=== PATIENT | female | born 1940 | race Caucasian/White ===

== ENCOUNTER → 2016-05-05 | Outpatient (REF) | payer MEDICARE ==
[~2016-05-05] MED LIST: CALC50TA PO; COLA100C PO; KETO10TAB PO; LISI-538 PO; METF500T PO; MYLI40DR PO; OMEP20TA PO; PRAV20TA2 PO; TURM500C PO; VITA400T2 PO; VITMTA PO
== END ==
LOC: M LAB REF 12:18
PROVIDERS: ATTEND Internal Medicine Medical Oncology
DX: C48.2 Malignant neoplasm of peritoneum, unspecified (principal)

== ENCOUNTER 2016-05-09 19:21 | Emergency (ER) | payer MEDICARE ==
[2016-05-09] MEDS ORDERED: METOCLOPRAMIDE INJ 10MG/2ML VIAL (J2765) As Ordered ONE (20:43)
[2016-05-09] MEDS ORDERED: SILVER NITRATE APPLICATOR As Ordered ONE (20:54)
[2016-05-09 21:02] LABS: BASO % 0.2 % (0.0-1.0); EOS % 0.9 % (0.0-3.0); LARGE UNSTAINED CELL % 0.8 % (0.0-4.0); LYMPH # 0.6 K/mm3 (1.5-4.5); LYMPH % 11.9 % (24.0-44.0); MEAN CORPUSCULAR HEMOGLOBIN 30.3 pg (27.0-33.0); MEAN CORPUSCULAR HGB CONC 33.8 g/dl (32.0-36.5); MEAN CORPUSCULAR VOLUME 89.7 fl (80.0-96.0); MONO # 0.1 K/mm3 (0.0-0.8); MONO % 1.6 % (0.0-5.0); NEUTROPHILS % 84.7 % (36.0-66.0); PLATELET COUNT, AUTOMATED 251 k/mm3 (150-450); WHITE BLOOD COUNT 4.7 K/mm3 (4.0-10.0)
[2016-05-09 21:11] LABS: INR 2.48
[2016-05-09 21:33] LABS: ALBUMIN 3.5 GM/DL (3.2-5.2); ALKALINE PHOSPHATASE 104 U/L (45-117); ALT/SGPT 14 U/L (12-78); AMYLASE 31 U/L (25-115); ANION GAP 8 MEQ/L (8-16); AST/SGOT 13 U/L (15-37); BILIRUBIN,DIRECT 0.2 MG/DL (0.0-0.2); BILIRUBIN,TOTAL 0.6 MG/DL (0.2-1.0); BLOOD UREA NITROGEN 11 MG/DL (7-18); CARBON DIOXIDE LEVEL 27 MEQ/L (21-32); CHLORIDE LEVEL 107 MEQ/L (98-107); CREATININE FOR GFR 0.55 MG/DL (0.55-1.02); GLOMERULAR FILTRATION RATE > 60.0 (>39); GLUCOSE, FASTING 134 MG/DL (83-110); POTASSIUM SERUM 3.8 MEQ/L (3.5-5.1); SODIUM LEVEL 142 MEQ/L (136-145)
--- NOTE | 2016-05-09 23:48 | REP ---
Clinical: Acute abdominal pain. Rule out obstruction. Technique: Upright view of the chest with supine and upright views of the abdomen and pelvis. Findings: Frontal upright view of the chest demonstrates Peallr-K-Luio with tip in the SVC and no acute cardiopulmonary process or free air below the diaphragm to suspect pneumoperitoneum. Supine and upright views of the abdomen and pelvis demonstrate nonspecific bowel gas pattern without obstruction or perforation. Postsurgical changes appreciated. No organomegaly. No abnormal calcifications. Skeletal structures normal for age. Impression: Nonspecific bowel gas pattern. Signed by Charles Lopez MD 05/09/2016 11:39 P
--- NOTE | 2016-05-10 00:17 | EDDOCDS ---
Nurse's Notes [facility] Name: Mayte Weathers Age: 76 yrs Sex: Female : 1940 Arrival Date: 05/09/2016 Time: 19:21 Bed 17 Private MD: Meaghan Boyer T Diagnosis: Epistaxis-right nares, controlled with cauterization;Nausea and vomiting Presentation: 05/09 19:25 Presenting complaint: Patient states: nauseated and vomiting with nose bleeds after pml vomiting all afternoon. had chemo last . denies fevers. Adult Sepsis Screening: The patient does not have new or worsening altered mentation. Patient's respiratory rate is less than 22. Systolic blood pressure is greater than 100. Patient has a qSOFA score of 0- Negative Sepsis Screen. Suicide/Homicide risk assessment- the patient denies having any suicidal and/or homicidal ideations and does not present with any other emotional, behavioral or mental health complaints. Status: Patient is not a neon sign servicer or dependent. Transition of care: patient was not received from another setting of care. 19:25 Acuity: QUIRINO Level 3 pml 19:25 Method Of Arrival: Walkin/Carried/Asstd pml Triage Assessment: 19:30 General: Appears in no apparent distress, comfortable, Behavior is appropriate for age, pml cooperative. Pain: Denies pain. GI: Reports nausea. Historical: - Allergies: Percocet (Vomit); - Home Meds: 1. Xarelto 15 mg oral tab daily 2. omeprazole 20 mg Oral cpDR once daily 3. lisinopril 10 mg oral tab once daily 4. pravastatin 20 mg oral tab once daily 5. Calcium Gluconate 600mg Oral twice a day 6. Vitamin D Oral 500 unit twice a day 7. rao med curcumin 375mg daily 8. 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 No barriers to communication noted, The patient speaks fluent British, Speaks appropriately for age. - Family history: Not pertinent. - : The pt / caregiver states he / she is not on anticoagulants. Home medication list is obtained from the patient. - Exposure Risk Screening:: None identified. Screenin/17 00:15 Screening information is obtained from the patient. Fall risk: No risks identified. ko2 Assistance ADL's: requires no assistance with activities of daily living. Abuse/DV Screen: The patient / caregiver reports he/she is: not in a situation that causes fear, pain or injury. Nutritional screening: No deficits noted. Advance Directives: Currently, there is no health care proxy. There is no active DNR order. There is no living will. There is no Power of Rotary Rock Drilling Machine Operator. home support is adequate. Assessment: 05/09 21:08 General: Appears in no apparent distress, Behavior is appropriate for age, cooperative. ko2 Pain: Denies pain. Neurological: Level of Consciousness is awake, alert. Respiratory: Airway is patent Respiratory effort is even, unlabored. GI: Reports nausea, vomiting. Derm: Skin is normal. 22:00 General: Appears in no apparent distress, Behavior is appropriate for age, cooperative. ko2 Neurological: Level of Consciousness is awake, alert. Respiratory: Airway is patent Respiratory effort is even, unlabored. Derm: Skin is normal. 23:00 General: Appears in no apparent distress, Behavior is appropriate for age, cooperative. ko2 Neurological: Level of Consciousness is awake, alert. Respiratory: Airway is patent Respiratory effort is even, unlabored. Derm: Skin is normal. 05/10 00:14 General: Appears in no apparent distress, Behavior is appropriate for age, cooperative. ko2 Neurological: Level of Consciousness is awake, alert. Respiratory: Airway is patent Respiratory effort is even, unlabored. Derm: Skin is normal. Vital Signs: 05/09 19:23 BP 126 / 87; Pulse 122; Resp 18; Temp 97.1; Pulse Ox 97% ; Weight 61.23 kg; Height 4 jlm ft. 10 in. (147.32 cm); Pain 0/10; 05/10 00:05 BP 117 / 77; Pulse 83; Resp 18; Temp 97.3(TE); Pulse Ox 95% on R/A; Pain 0/10; ignacio 05/09 19:23 Body Mass Index 28.21 (61.23 kg, 147.32 cm) [facility] Vitals: 05/09 19:23 Log In Time: May 09, 2016 at 19:23. jlm 19:25 RN notified that patient meets Red Flag criteria. [facility] ED Course: 19:23 Patient visited by Pricila Guzmán, Market Investigator. jlm 19:23 Meaghan Boyer is Private Physician. jlm 19:23 Patient moved to Waiting jlm 19:27 Patient visited by Pricila Guzmán, Market Investigator. jlm 19:27 Patient moved to Pre RCE jlm 19:28 Triage Initiated pml 19:31 Patient visited by Kavitha Yates,NAYAN. pml 19:31 Emely Dunham,RN is Primary Nurse. pml 19:31 Patient moved to 17 pml 19:37 Patient visited by Ade Contreras PCA. ignacio 19:37 Pt greeted and oriented to ED. Patient advised of names of staff involved in care, ignacio location of call nagel, wait times and NPO status. Accompanied by Family Member, Significant Other, Patient has correct armband on for positive identification. Placed in gown. Bed in low position. Call light in reach. Side rails up X2. accredited pharmacy technician on. Pulse ox on. NIBP on. 19:52 Maynor Miller DO is Attending Physician. mm11 19:52 Patient visited by Maynor Miller DO. mm11 20:01 Patient visited by Maynor Miller DO. mm11 20:10 Patient visited by Levon Soliz PCA. kb5 21:08 Patient visited by Emely Dunham RN. ko2 21:17 Inserted saline lock: 20 gauge in left antecubital area The patient tolerated the jf3 procedure well. 22:05 Patient visited by Emely Dunham RN. ko2 23:07 Patient visited by Ade Contreras PCA. ignacio 23:19 Patient moved to Radiology bereket 23:20 Patient moved to 17 bereket 23:21 [facility] Payment Agreement was scanned into [employer] and attached to record. gjb 05/10 00:03 Abdomen, Flat\E\Upright,PA Chest Returned. EDMS 00:06 Patient visited by Ade Contreras PCA. ignacio 00:15 The patient / caregiver is instructed regarding the plan of care and ED course. ko2 00:15 Discontinued lock intact, bleeding controlled, pressure dressing applied, No ko2 redness/swelling at site. No procedures done that require assistance. Administered Medications: 05/09 20:52 Drug: Metoclopramide 10 mg [metoclopramide 5 mg/mL injection solution] Route: IV; Rate: ko2 40 mg/hr; Infused Over: 15 mins; Site: right antecubital; 20:52 Drug: NS 0.9% 500 ml [sodium chloride 0.9 % intravenous solution] Route: IV; Rate: ko2 bolus; Site: left antecubital; 20:56 Drug: Silver Nitrate Applicators 1 applic [silver nitrate applicators 75 %-25 % topical ko2 stick (1 applic)] {Note: Dr miller given Silver nitrate stick.} Route: Topical; Site: face; Order Results: Lab Order: Amylase; SPEC'M 05/09/16 20:50 Test: AMYLASE; Value: 31; Range: 25-115; Units: U/L; Status: F Lab Order: Basic Metabolic Profile; SPEC'M 05/09/16 20:50 Test: GLUCOSE, FASTING; Value: 134; Range: 83-110; Abnormal: Above high normal; Units: MG/DL; Status: F Test: BLOOD UREA NITROGEN; Value: 11; Range: 7-18; Units: MG/DL; Status: F Test: CREATININE FOR GFR; Value: 0.55; Range: 0.55-1.02; Units: MG/DL; Status: F Test: GLOMERULAR FILTRATION RATE; Value: > 60.0; Range: >39; Status: F Test: SODIUM LEVEL; Value: 142; Range: 136-145; Units: MEQ/L; Status: F Test: POTASSIUM SERUM; Value: 3.8; Range: 3.5-5.1; Units: MEQ/L; Status: F Test: CHLORIDE LEVEL; Value: 107; Range: 98-107; Units: MEQ/L; Status: F Test: CARBON DIOXIDE LEVEL; Value: 27; Range: 21-32; Units: MEQ/L; Status: F Test: ANION GAP; Value: 8; Range: 8-16; Units: MEQ/L; Status: F Test: CALCIUM LEVEL; Value: 9.0; Range: 8.8-10.2; Units: MG/DL; Status: F Test Note: ; Units are mL/min/1.73 m2 Chronic Kidney Disease Staging per NKF: Stage I & II GFR >=60 Normal to Mildly Decreased Stage III GFR 30-59 Moderately Decreased Stage IV GFR 15-29 Severely Decreased Stage V GFR <15 Very Little GFR Left ESRD GFR <15 on CLINIC COORDINATOR Lab Order: CBC with Diff; SPEC'M 05/09/16 20:50 Test: WHITE BLOOD COUNT; Value: 4.7; Range: 4.0-10.0; Units: K/mm3; Status: F Test: RED BLOOD COUNT; Value: 3.90; Range: 4.00-5.40; Abnormal: Below low normal; Units: M/mm3; Status: F Test: HEMOGLOBIN; Value: 11.8; Range: 12.0-16.0; Abnormal: Below low normal; Units: g/dl; Status: F Test: HEMATOCRIT; Value: 35.0; Range: 36.0-47.0; Abnormal: Below low normal; Units: %; Status: F Test: MEAN CORPUSCULAR VOLUME; Value: 89.7; Range: 80.0-96.0; Units: fl; Status: F Test: MEAN CORPUSCULAR HEMOGLOBIN; Value: 30.3; Range: 27.0-33.0; Units: pg; Status: F Test: MEAN CORPUSCULAR HGB CONC; Value: 33.8; Range: 32.0-36.5; Units: g/dl; Status: F Test: RED CELL DISTRIBUTION WIDTH; Value: 15.0; Range: 11.5-14.5; Abnormal: Above high normal; Units: %; Status: F Test: PLATELET COUNT, AUTOMATED; Value: 251; Range: 150-450; Units: k/mm3; Status: F Test: NEUTROPHILS %; Value: 84.7; Range: 36.0-66.0; Abnormal: Above high normal; Units: %; Status: F Test: LYMPH %; Value: 11.9; Range: 24.0-44.0; Abnormal: Below low normal; Units: %; Status: F Test: MONO %; Value: 1.6; Range: 0.0-5.0; Units: %; Status: F Test: EOS %; Value: 0.9; Range: 0.0-3.0; Units: %; Status: F Test: BASO %; Value: 0.2; Range: 0.0-1.0; Units: %; Status: F Test: LARGE UNSTAINED CELL %; Value: 0.8; Range: 0.0-4.0; Units: %; Status: F Test: NEUTROPHILS #; Value: 4.0; Range: 1.8-7.7; Units: K/mm3; Status: F Test: LYMPH #; Value: 0.6; Range: 1.5-4.5; Abnormal: Below low normal; Units: K/mm3; Status: F Test: MONO #; Value: 0.1; Range: 0.0-0.8; Units: K/mm3; Status: F Test: EOS #; Value: 0.0; Range: 0.0-0.50; Units: K/mm3; Status: F Test: BASO #; Value: 0.0; Range: 0.0-0.2; Units: K/mm3; Status: F Test: LARGE UNSTAINED CELL #; Value: 0.0; Range: 0.0-0.4; Units: K/mm3; Status: F Lab Order: Cardiac Injury Profile; [facility] 05/09/16 20:50 Test: CPK CREATINE PHOSPHOKINASE; Value: 24; Range: 26-192; Abnormal: Below low normal; Units: U/L; Status: F Test: CK-MB VALUE MASS; Value: 1.0; Range: 0.0-3.6; Units: NG/ML; Status: F Test: MB/CK RELATIVE INDEX; Value: 4.16; Range: < OR =4; Abnormal: Above high normal; Status: F Test Note: ; DIAGNOSIS CRITERIA MMB ng/ml Relative Index (RI) NON-AMI < or = 5 N/A HERNANDEZ ZONE > 5 < or = 4 AMI > 5 > 4 Lab Order: Lipase; [facility] 05/09/16 20:50 Test: LIPASE; Value: 88; Range: 73-393; Units: U/L; Status: F Lab Order: Liver Profile; [facility] 05/09/16 20:50 Test: AST/SGOT; Value: 13; Range: 15-37; Abnormal: Below low normal; Units: U/L; Status: F Test: ALT/SGPT; Value: 14; Range: 12-78; Units: U/L; Status: F Test: ALKALINE PHOSPHATASE; Value: 104; Range: 45-117; Units: U/L; Status: F Test: BILIRUBIN,TOTAL; Value: 0.6; Range: 0.2-1.0; Units: MG/DL; Status: F Test: BILIRUBIN,DIRECT; Value: 0.2; Range: 0.0-0.2; Units: MG/DL; Status: F Test: TOTAL PROTEIN; Value: 7.0; Range: 6.4-8.2; Units: GM/DL; Status: F Test: ALBUMIN; Value: 3.5; Range: 3.2-5.2; Units: GM/DL; Status: F Test: ALBUMIN/GLOBULIN RATIO; Value: 1.00; Range: 1.00-1.93; Status: F Lab Order: Partial Thromboplastin Time; [facility] 05/09/16 20:50 Test: PARTIAL THROMBOPLASTIN TIME; Value: 35.8; Range: 26.6-37.1; Units: SECONDS; Status: F Lab Order: Prothrombin Time Profile\E\INR; [facility] 05/09/16 20:50 Test: PROTHROMBIN TIME; Value: 26.9; Range: 12.3-14.5; Abnormal: Above high normal; Units: SECONDS; Status: F Test: INR; Value: 2.48; Status: F Test Note: ; THERAPUTIC HUMAN INR VALUES INDICATIONS NORMAL RANGES PROPHYLAXIS/TREATMENT OF: VENOUS THROMBOSIS 2.0-3.0 PULMONARY EMBOLISM 2.0-3.0 PREVENTION OF SYSTEMIC EMBOLISM FROM: TISSUE HEART VALVES 2.0-3.0 ACUTE MYOCARDIAL INFARCTION 2.0-3.0 VALVULAR HEART DISEASE 2.0-3.0 ATRIAL FIBRILLATION 2.0-3.0 MECHANICAL VALVES(HIGH RISK) 2.5-3.5 RECURRENT MYOCARDIAL INFARCTION 2.5-3.5 Lab Order: Troponin; [facility] 05/09/16 20:50 Test: TROPONIN I; Value: < 0.02; Range: < 0.10; Units: NG/ML; Status: F Test Note: ; Troponin I Reference Interval for [employer] LOCI: 99th Percentile= 0.00-0.045 ng/ml Risk Stratification: <= 0.10 ng/ml Decreased Risk for Adverse Clinical Events. 0.10-1.50 ng/ml Increased Risk for Adverse Clinical Events. Evaluation of additional criterion and/or repeat testing in 2-6 hours is suggested to rule out myocardial damage. >= 1.50 ng/ml Indicative of Myocardial Injury. Radiology Order: Abdomen, Flat\E\Upright,PA Chest Test: Abdomen, Flat\E\Upright,PA Chest REASON FOR EXAMINATION: r/o obstruction; Clinical: Acute abdominal pain. Rule out obstruction.; ; Technique: Upright view of the chest with supine and upright views of the; abdomen and pelvis.; ; Findings: Frontal upright view of the chest demonstrates Gkonkm-Z-Hwzz with tip; in the SVC and no acute cardiopulmonary process or free air below the diaphragm; to suspect pneumoperitoneum. Supine and upright views of the abdomen and pelvis; demonstrate nonspecific bowel gas pattern without obstruction or perforation.; Postsurgical changes appreciated. No organomegaly. No abnormal calcifications.; Skeletal structures normal for age.; ; Impression:; Nonspecific bowel gas pattern.; ; ; Signed by; Charles Lopez MD 05/09/2016 11:39 P; Outcome: 05/10 00:07 Discharge ordered by Provider. mm11 00:15 Discharge Assessment: Patient awake, alert and oriented x 3. No cognitive and/or ko2 functional deficits noted. Patient verbalized understanding of disposition instructions. patient administered narcotics - no. The following High Risk Discharge criteria are identified: None. Discharged to home ambulatory. Condition: stable. Discharge instructions given to patient, Instructed on discharge instructions, follow up and referral plans. medication usage, Demonstrated understanding of instructions, medications, Pt was receptive of discharge instructions/ teaching. Prescriptions given X 1. No special radiology studies were completed. Property sent home with patient. 00:16 Patient left the ED. ko2 Signatures: Dispatcher [employer] EDMS Sebastian Charles Kristopher, YARD DEMURRAGE CLERK YARD DEMURRAGE CLERK [email or web address] Maynor Miller, DO mm11 Ade Contreras, YARD DEMURRAGE CLERK YARD DEMURRAGE CLERK Kavitha Onofre RN RN pml Mitchell, Jessie, Market Investigator Unit jlEmely Mcclelland RN RN ko2 Stevenson Mccullough RN RN jf3 Naye Peralta MTDD
--- NOTE | 2016-05-10 00:17 | EDDOCDS ---
Physician Documentation [facility] Name: Mayte Weathers Age: 76 yrs Sex: Female : 1940 Arrival Date: 05/09/2016 Time: 19:21 Bed 17 Private MD: Meaghan Boyer T Disposition: 05/10/16 00:07 Discharged to Home/Self Care. Impression: Epistaxis - right nares, controlled with cauterization, Nausea and vomiting. - Condition is Stable. - Discharge Instructions: Nosebleed, Nausea and Vomiting, Nosebleed, [id number]. - Prescriptions for Reglan 10 mg Oral Tablet - take 1 tablet by ORAL route every 6 hours take 30 minutes before meals and at bedtime; 20 tablet. - Medication Reconciliation, Local Pharmacy Hours form. - Follow up: Private Physician; When: 2 - 3 days; Reason: Continuance of care. - Problem is an acute exacerbation. - Symptoms have improved. Historical: - Allergies: Percocet (Vomit); - Home Meds: 1. Xarelto 15 mg oral tab daily 2. omeprazole 20 mg Oral cpDR once daily 3. lisinopril 10 mg oral tab once daily 4. pravastatin 20 mg oral tab once daily 5. Calcium Gluconate 600mg Oral twice a day 6. Vitamin D Oral 500 unit twice a day 7. rao med curcumin 375mg daily 8. 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 No barriers to communication noted, The patient speaks fluent Bulgarian, Speaks appropriately for age. - Family history: Not pertinent. - : The pt / caregiver states he / she is not on anticoagulants. Home medication list is obtained from the patient. - Exposure Risk Screening:: None identified. Vital Signs: 05/09 19:23 BP 126 / 87; Pulse 122; Resp 18; Temp 97.1; Pulse Ox 97% ; Weight 61.23 kg / 134.99 jlm lbs; Height 4 ft. 10 in. (147.32 cm); Pain 0/10; 05/10 00:05 BP 117 / 77; Pulse 83; Resp 18; Temp 97.3(TE); Pulse Ox 95% on R/A; Pain 0/10; ignacio 05/09 19:23 Body Mass Index 28.21 (61.23 kg, 147.32 cm) [facility] MDM: 05/09 20:02 -Blood Culture (Adults Only), peripheral from different site, or from device/port/PICC mm11 etc. if present ordered. 20:02 IV Saline Lock ordered. mm11 20:02 Undress patient appropriately for examination ordered. mm11 20:02 Metoclopramide 10 mg IV at 40 mg/hr once over 15 mins ordered. mm11 20:02 NS 0.9% 500 ml IV at bolus once ordered. mm11 20:03 Amylase Ordered. EDMS 20:03 Basic Metabolic Profile Ordered. EDMS 20:03 CBC with Diff Ordered. EDMS 20:03 Cardiac Injury Profile Ordered. EDMS 20:03 Lipase Ordered. EDMS 20:03 Liver Profile Ordered. EDMS 20:03 Partial Thromboplastin Time Ordered. EDMS 20:03 Prothrombin Time Profile\E\INR Ordered. EDMS 20:03 Troponin Ordered. EDMS 20:04 NOTHING BY MOUTH+DIET ordered. EDMS 20:06 -Blood Culture (Adults Only), peripheral from different site, or from device/port/PICC ml3 etc. if present complete. 20:08 BLOOD CULTURES Ordered. EDMS 20:30 Silver Nitrate Applicators 75 %-25 % 1 applic Topical once ordered. mm11 21:12 CBC with Diff Reviewed. mm11 21:12 Prothrombin Time Profile\E\INR Reviewed. mm11 21:12 Partial Thromboplastin Time Reviewed. mm11 22:10 Basic Metabolic Profile Reviewed. mm11 22:10 Cardiac Injury Profile Reviewed. mm11 22:10 Liver Profile Reviewed. mm11 22:10 Amylase Reviewed. mm11 22:10 Lipase Reviewed. mm11 22:10 Troponin Reviewed. mm11 22:32 Financial registration complete. gjb 22:57 Abdomen, Flat\E\Upright,PA Chest Ordered. EDMS 23:21 COUNT INCLUDES THE [facility] Payment Agreement was scanned into [employer] and attached to record. gjb Administered Medications: 20:52 Drug: Metoclopramide 10 mg [metoclopramide 5 mg/mL injection solution] Route: IV; Rate: ko2 40 mg/hr; Infused Over: 15 mins; Site: right antecubital; 20:52 Drug: NS 0.9% 500 ml [sodium chloride 0.9 % intravenous solution] Route: IV; Rate: ko2 bolus; Site: left antecubital; 20:56 Drug: Silver Nitrate Applicators 1 applic [silver nitrate applicators 75 %-25 % topical ko2 stick (1 applic)] {Note: Dr miller given Silver nitrate stick.} Route: Topical; Site: face; Signatures: Dispatcher [employer] EDMS Derrick Galarza, Adolescent Coordinator Unit ml3 Maynor Miller DO DO mm11 Kavitha Yates RN RN pml Emely Dunham RN RN ko2 Naye Peralta The chart was reviewed and I authenticate all verbal orders and agree with the evaluation and treatment provided.Attachments: 23:21 COUNT INCLUDES THE [facility] Payment Agreement altaf MTDSonal
--- NOTE | 2016-05-12 01:17 | EDDOCDS ---
Nurse's Notes [facility] Name: Mayte Weathers Age: 76 yrs Sex: Female : 1940 Arrival Date: 05/09/2016 Time: 19:21 Bed 17 Private MD: Meaghan Boyer T Diagnosis: Epistaxis-right nares, controlled with cauterization;Nausea and vomiting Presentation: 05/09 19:25 Presenting complaint: Patient states: nauseated and vomiting with nose bleeds after pml vomiting all afternoon. had chemo last . denies fevers. Adult Sepsis Screening: The patient does not have new or worsening altered mentation. Patient's respiratory rate is less than 22. Systolic blood pressure is greater than 100. Patient has a qSOFA score of 0- Negative Sepsis Screen. Suicide/Homicide risk assessment- the patient denies having any suicidal and/or homicidal ideations and does not present with any other emotional, behavioral or mental health complaints. Status: Patient is not a office service coordinator or dependent. Transition of care: patient was not received from another setting of care. 19:25 Acuity: QUIRINO Level 3 pml 19:25 Method Of Arrival: Walkin/Carried/Asstd pml Triage Assessment: 19:30 General: Appears in no apparent distress, comfortable, Behavior is appropriate for age, pml cooperative. Pain: Denies pain. GI: Reports nausea. Historical: - Allergies: Percocet (Vomit); - Home Meds: 1. Xarelto 15 mg oral tab daily 2. omeprazole 20 mg Oral cpDR once daily 3. lisinopril 10 mg oral tab once daily 4. pravastatin 20 mg oral tab once daily 5. Calcium Gluconate 600mg Oral twice a day 6. Vitamin D Oral 500 unit twice a day 7. rao med curcumin 375mg daily 8. 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 No barriers to communication noted, The patient speaks fluent [place], Speaks appropriately for age. - Family history: Not pertinent. - : The pt / caregiver states he / she is not on anticoagulants. Home medication list is obtained from the patient. - Exposure Risk Screening:: None identified. Screenin/17 00:15 Screening information is obtained from the patient. Fall risk: No risks identified. ko2 Assistance ADL's: requires no assistance with activities of daily living. Abuse/DV Screen: The patient / caregiver reports he/she is: not in a situation that causes fear, pain or injury. Nutritional screening: No deficits noted. Advance Directives: Currently, there is no health care proxy. There is no active DNR order. There is no living will. There is no Power of [place]. home support is adequate. Assessment: 05/09 21:08 General: Appears in no apparent distress, Behavior is appropriate for age, cooperative. ko2 Pain: Denies pain. Neurological: Level of Consciousness is awake, alert. Respiratory: Airway is patent Respiratory effort is even, unlabored. GI: Reports nausea, vomiting. Derm: Skin is normal. 22:00 General: Appears in no apparent distress, Behavior is appropriate for age, cooperative. ko2 Neurological: Level of Consciousness is awake, alert. Respiratory: Airway is patent Respiratory effort is even, unlabored. Derm: Skin is normal. 23:00 General: Appears in no apparent distress, Behavior is appropriate for age, cooperative. ko2 Neurological: Level of Consciousness is awake, alert. Respiratory: Airway is patent Respiratory effort is even, unlabored. Derm: Skin is normal. 05/10 00:14 General: Appears in no apparent distress, Behavior is appropriate for age, cooperative. ko2 Neurological: Level of Consciousness is awake, alert. Respiratory: Airway is patent Respiratory effort is even, unlabored. Derm: Skin is normal. Vital Signs: 05/09 19:23 BP 126 / 87; Pulse 122; Resp 18; Temp 97.1; Pulse Ox 97% ; Weight 61.23 kg; Height 4 jlm ft. 10 in. (147.32 cm); Pain 0/10; 05/10 00:05 BP 117 / 77; Pulse 83; Resp 18; Temp 97.3(TE); Pulse Ox 95% on R/A; Pain 0/10; ignacio 05/09 19:23 Body Mass Index 28.21 (61.23 kg, 147.32 cm) [facility] Vitals: 05/09 19:23 Log In Time: May 09, 2016 at 19:23. jlm 19:25 RN notified that patient meets Red Flag criteria. [facility] ED Course: 19:23 Patient visited by Pricila Guzmán, Audio Visual Facilities Engineer. jlm 19:23 Meaghan Boyer is Private Physician. jlm 19:23 Patient moved to Waiting jlm 19:27 Patient visited by Pricila Guzmán, Audio Visual Facilities Engineer. jlm 19:27 Patient moved to Pre RCE jlm 19:28 Triage Initiated pml 19:31 Patient visited by Kavitha Yates,NAYAN. pml 19:31 Emely Dunham,RN is Primary Nurse. pml 19:31 Patient moved to 17 pml 19:37 Patient visited by Ade Contreras PCA. ignacio 19:37 Pt greeted and oriented to ED. Patient advised of names of staff involved in care, ignacio location of call nagel, wait times and NPO status. Accompanied by Family Member, Significant Other, Patient has correct armband on for positive identification. Placed in gown. Bed in low position. Call light in reach. Side rails up X2. blade grader operator on. Pulse ox on. NIBP on. 19:52 Maynor Miller DO is Attending Physician. mm11 19:52 Patient visited by Maynor Miller DO. mm11 20:01 Patient visited by Maynor Miller DO. mm11 20:10 Patient visited by Levon Soliz PCA. kb5 21:08 Patient visited by Emely Dunham RN. ko2 21:17 Inserted saline lock: 20 gauge in left antecubital area The patient tolerated the jf3 procedure well. 22:05 Patient visited by Emely Dunham RN. ko2 23:07 Patient visited by Ade Contreras PCA. ignacio 23:19 Patient moved to Radiology bereket 23:20 Patient moved to 17 bereket 23:21 [facility] [place] Payment Agreement was scanned into [employer] and attached to record. gjb 05/10 00:03 Abdomen, Flat\E\Upright,PA Chest Returned. EDMS 00:06 Patient visited by Ade Contreras PCA. ignacio 00:15 The patient / caregiver is instructed regarding the plan of care and ED course. ko2 00:15 Discontinued lock intact, bleeding controlled, pressure dressing applied, No ko2 redness/swelling at site. No procedures done that require assistance. 11:09 T-Sheet-- Draft Copy was scanned into [employer] and attached to record. gb Administered Medications: 05/09 20:52 Drug: Metoclopramide 10 mg [metoclopramide 5 mg/mL injection solution] Route: IV; Rate: ko2 40 mg/hr; Infused Over: 15 mins; Site: right antecubital; 20:52 Drug: NS 0.9% 500 ml [sodium chloride 0.9 % intravenous solution] Route: IV; Rate: ko2 bolus; Site: left antecubital; 20:56 Drug: Silver Nitrate Applicators 1 applic [silver nitrate applicators 75 %-25 % topical ko2 stick (1 applic)] {Note: Dr miller given Silver nitrate stick.} Route: Topical; Site: face; Order Results: Lab Order: Amylase; SPEC'M 05/09/16 20:50 Test: AMYLASE; Value: 31; Range: 25-115; Units: U/L; Status: F Lab Order: Basic Metabolic Profile; SPEC'M 05/09/16 20:50 Test: GLUCOSE, FASTING; Value: 134; Range: 83-110; Abnormal: Above high normal; Units: MG/DL; Status: F Test: BLOOD UREA NITROGEN; Value: 11; Range: 7-18; Units: MG/DL; Status: F Test: CREATININE FOR GFR; Value: 0.55; Range: 0.55-1.02; Units: MG/DL; Status: F Test: GLOMERULAR FILTRATION RATE; Value: > 60.0; Range: >39; Status: F Test: SODIUM LEVEL; Value: 142; Range: 136-145; Units: MEQ/L; Status: F Test: POTASSIUM SERUM; Value: 3.8; Range: 3.5-5.1; Units: MEQ/L; Status: F Test: CHLORIDE LEVEL; Value: 107; Range: 98-107; Units: MEQ/L; Status: F Test: CARBON DIOXIDE LEVEL; Value: 27; Range: 21-32; Units: MEQ/L; Status: F Test: ANION GAP; Value: 8; Range: 8-16; Units: MEQ/L; Status: F Test: CALCIUM LEVEL; Value: 9.0; Range: 8.8-10.2; Units: MG/DL; Status: F Test Note: ; Units are mL/min/1.73 m2 Chronic Kidney Disease Staging per NKF: Stage I & II GFR >=60 Normal to Mildly Decreased Stage III GFR 30-59 Moderately Decreased Stage IV GFR 15-29 Severely Decreased Stage V GFR <15 Very Little GFR Left ESRD GFR <15 on WAX BALL MOLDER Lab Order: CBC with Diff; SPEC'M 05/09/16 20:50 Test: WHITE BLOOD COUNT; Value: 4.7; Range: 4.0-10.0; Units: K/mm3; Status: F Test: RED BLOOD COUNT; Value: 3.90; Range: 4.00-5.40; Abnormal: Below low normal; Units: M/mm3; Status: F Test: HEMOGLOBIN; Value: 11.8; Range: 12.0-16.0; Abnormal: Below low normal; Units: g/dl; Status: F Test: HEMATOCRIT; Value: 35.0; Range: 36.0-47.0; Abnormal: Below low normal; Units: %; Status: F Test: MEAN CORPUSCULAR VOLUME; Value: 89.7; Range: 80.0-96.0; Units: fl; Status: F Test: MEAN CORPUSCULAR HEMOGLOBIN; Value: 30.3; Range: 27.0-33.0; Units: pg; Status: F Test: MEAN CORPUSCULAR HGB CONC; Value: 33.8; Range: 32.0-36.5; Units: g/dl; Status: F Test: RED CELL DISTRIBUTION WIDTH; Value: 15.0; Range: 11.5-14.5; Abnormal: Above high normal; Units: %; Status: F Test: PLATELET COUNT, AUTOMATED; Value: 251; Range: 150-450; Units: k/mm3; Status: F Test: NEUTROPHILS %; Value: 84.7; Range: 36.0-66.0; Abnormal: Above high normal; Units: %; Status: F Test: LYMPH %; Value: 11.9; Range: 24.0-44.0; Abnormal: Below low normal; Units: %; Status: F Test: MONO %; Value: 1.6; Range: 0.0-5.0; Units: %; Status: F Test: EOS %; Value: 0.9; Range: 0.0-3.0; Units: %; Status: F Test: BASO %; Value: 0.2; Range: 0.0-1.0; Units: %; Status: F Test: LARGE UNSTAINED CELL %; Value: 0.8; Range: 0.0-4.0; Units: %; Status: F Test: NEUTROPHILS #; Value: 4.0; Range: 1.8-7.7; Units: K/mm3; Status: F Test: LYMPH #; Value: 0.6; Range: 1.5-4.5; Abnormal: Below low normal; Units: K/mm3; Status: F Test: MONO #; Value: 0.1; Range: 0.0-0.8; Units: K/mm3; Status: F Test: EOS #; Value: 0.0; Range: 0.0-0.50; Units: K/mm3; Status: F Test: BASO #; Value: 0.0; Range: 0.0-0.2; Units: K/mm3; Status: F Test: LARGE UNSTAINED CELL #; Value: 0.0; Range: 0.0-0.4; Units: K/mm3; Status: F Lab Order: Cardiac Injury Profile; SPEC' 05/09/16 20:50 Test: CPK CREATINE PHOSPHOKINASE; Value: 24; Range: 26-192; Abnormal: Below low normal; Units: U/L; Status: F Test: CK-MB VALUE MASS; Value: 1.0; Range: 0.0-3.6; Units: NG/ML; Status: F Test: MB/CK RELATIVE INDEX; Value: 4.16; Range: < OR =4; Abnormal: Above high normal; Status: F Test Note: ; DIAGNOSIS CRITERIA MMB ng/ml Relative Index (RI) NON-AMI < or = 5 N/A HERNANDEZ ZONE > 5 < or = 4 AMI > 5 > 4 Lab Order: Lipase; SPEC'M 05/09/16 20:50 Test: LIPASE; Value: 88; Range: 73-393; Units: U/L; Status: F Lab Order: Liver Profile; SPEC' 05/09/16 20:50 Test: AST/SGOT; Value: 13; Range: 15-37; Abnormal: Below low normal; Units: U/L; Status: F Test: ALT/SGPT; Value: 14; Range: 12-78; Units: U/L; Status: F Test: ALKALINE PHOSPHATASE; Value: 104; Range: 45-117; Units: U/L; Status: F Test: BILIRUBIN,TOTAL; Value: 0.6; Range: 0.2-1.0; Units: MG/DL; Status: F Test: BILIRUBIN,DIRECT; Value: 0.2; Range: 0.0-0.2; Units: MG/DL; Status: F Test: TOTAL PROTEIN; Value: 7.0; Range: 6.4-8.2; Units: GM/DL; Status: F Test: ALBUMIN; Value: 3.5; Range: 3.2-5.2; Units: GM/DL; Status: F Test: ALBUMIN/GLOBULIN RATIO; Value: 1.00; Range: 1.00-1.93; Status: F Lab Order: Partial Thromboplastin Time; [facility] 05/09/16 20:50 Test: PARTIAL THROMBOPLASTIN TIME; Value: 35.8; Range: 26.6-37.1; Units: SECONDS; Status: F Lab Order: Prothrombin Time Profile\E\INR; 05/09/16 20:50 Test: PROTHROMBIN TIME; Value: 26.9; Range: 12.3-14.5; Abnormal: Above high normal; Units: SECONDS; Status: F Test: INR; Value: 2.48; Status: F Test Note: ; THERAPUTIC HUMAN INR VALUES INDICATIONS NORMAL RANGES PROPHYLAXIS/TREATMENT OF: VENOUS THROMBOSIS 2.0-3.0 PULMONARY EMBOLISM 2.0-3.0 PREVENTION OF SYSTEMIC EMBOLISM FROM: TISSUE HEART VALVES 2.0-3.0 ACUTE MYOCARDIAL INFARCTION 2.0-3.0 VALVULAR HEART DISEASE 2.0-3.0 ATRIAL FIBRILLATION 2.0-3.0 MECHANICAL VALVES(HIGH RISK) 2.5-3.5 RECURRENT MYOCARDIAL INFARCTION 2.5-3.5 Lab Order: Troponin; 05/09/16 20:50 Test: TROPONIN I; Value: < 0.02; Range: < 0.10; Units: NG/ML; Status: F Test Note: ; Troponin I Reference Interval for [employer] LOCI: 99th Percentile= 0.00-0.045 ng/ml Risk Stratification: <= 0.10 ng/ml Decreased Risk for Adverse Clinical Events. 0.10-1.50 ng/ml Increased Risk for Adverse Clinical Events. Evaluation of additional criterion and/or repeat testing in 2-6 hours is suggested to rule out myocardial damage. >= 1.50 ng/ml Indicative of Myocardial Injury. Lab Order: BLOOD CULTURES; SPEC'M 05/09/16 20:50 Test: BLOOD CULTURE; Value: No growth after 24 hours . All specimens observed; Status: F Test: BLOOD CULTURE; Value: for 5 days. Results final at that time.; Status: F Test: BLOOD CULTURE; Value: No Growth after 48 hours. All Specimens observed; Status: F Test: BLOOD CULTURE; Value: for 7 days. Results final at that time.; Status: F Radiology Order: Abdomen, Flat\E\Upright,PA Chest Test: Abdomen, Flat\E\Upright,PA Chest REASON FOR EXAMINATION: r/o obstruction; Clinical: Acute abdominal pain. Rule out obstruction.; ; Technique: Upright view of the chest with supine and upright views of the; abdomen and pelvis.; ; Findings: Frontal upright view of the chest demonstrates [id number] with tip; in the SVC and no acute cardiopulmonary process or free air below the diaphragm; to suspect pneumoperitoneum. Supine and upright views of the abdomen and pelvis; demonstrate nonspecific bowel gas pattern without obstruction or perforation.; Postsurgical changes appreciated. No organomegaly. No abnormal calcifications.; Skeletal structures normal for age.; ; Impression:; Nonspecific bowel gas pattern.; ; ; Signed by; Charles Lopez MD 05/09/2016 11:39 P; Outcome: 05/10 00:07 Discharge ordered by Provider. mm11 00:15 Discharge Assessment: Patient awake, alert and oriented x 3. No cognitive and/or ko2 functional deficits noted. Patient verbalized understanding of disposition instructions. patient administered narcotics - no. The following High Risk Discharge criteria are identified: None. Discharged to home ambulatory. Condition: stable. Discharge instructions given to patient, Instructed on discharge instructions, follow up and referral plans. medication usage, Demonstrated understanding of instructions, medications, Pt was receptive of discharge instructions/ teaching. Prescriptions given X 1. No special radiology studies were completed. Property sent home with patient. 00:16 Patient left the ED. ko2 Signatures: Dispatcher [employer] EDMS Sebastian Charles bereket [place], Nalini, Reg Reg gb [place], Levon, RUBY ON RAILS DEVELOPER RUBY ON RAILS DEVELOPER kb5 Maynor Miller, DO DO mm11 Ben, Ade, RUBY ON RAILS DEVELOPER RUBY ON RAILS DEVELOPER ignacio Milan,Kavitha,RN RN pml Pricila Guzmán, Audio Visual Facilities Engineer Unit jlm Emely Dunham RN RN ko2 Stevenson Mccullough RN RN jf3 Naye Peralta Chart Complete MTDD
--- NOTE | 2016-05-12 01:17 | EDDOCDS ---
Physician Documentation [facility] Name: Mayte Weathers Age: 76 yrs Sex: Female : 1940 Arrival Date: 05/09/2016 Time: 19:21 Bed 17 Private MD: Meaghan Boyer T Disposition: 05/10/16 00:07 Discharged to Home/Self Care. Impression: Epistaxis - right nares, controlled with cauterization, Nausea and vomiting. - Condition is Stable. - Discharge Instructions: Nosebleed, Nausea and Vomiting, Nosebleed, [id number]. - Prescriptions for Reglan 10 mg Oral Tablet - take 1 tablet by ORAL route every 6 hours take 30 minutes before meals and at bedtime; 20 tablet. - Medication Reconciliation, Local Pharmacy Hours form. - Follow up: Private Physician; When: 2 - 3 days; Reason: Continuance of care. - Problem is an acute exacerbation. - Symptoms have improved. Historical: - Allergies: Percocet (Vomit); - Home Meds: 1. Xarelto 15 mg oral tab daily 2. omeprazole 20 mg Oral cpDR once daily 3. lisinopril 10 mg oral tab once daily 4. pravastatin 20 mg oral tab once daily 5. Calcium Gluconate 600mg Oral twice a day 6. Vitamin D Oral 500 unit twice a day 7. rao med curcumin 375mg daily 8. 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 No barriers to communication noted, The patient speaks fluent Telugu, Speaks appropriately for age. - Family history: Not pertinent. - : The pt / caregiver states he / she is not on anticoagulants. Home medication list is obtained from the patient. - Exposure Risk Screening:: None identified. Vital Signs: 05/09 19:23 BP 126 / 87; Pulse 122; Resp 18; Temp 97.1; Pulse Ox 97% ; Weight 61.23 kg / 134.99 jlm lbs; Height 4 ft. 10 in. (147.32 cm); Pain 0/10; 05/10 00:05 BP 117 / 77; Pulse 83; Resp 18; Temp 97.3(TE); Pulse Ox 95% on R/A; Pain 0/10; ignacio 05/09 19:23 Body Mass Index 28.21 (61.23 kg, 147.32 cm) [facility] MDM: 05/09 20:02 -Blood Culture (Adults Only), peripheral from different site, or from device/port/PICC mm11 etc. if present ordered. 20:02 IV Saline Lock ordered. mm11 20:02 Undress patient appropriately for examination ordered. mm11 20:02 Metoclopramide 10 mg IV at 40 mg/hr once over 15 mins ordered. mm11 20:02 NS 0.9% 500 ml IV at bolus once ordered. mm11 20:03 Amylase Ordered. EDMS 20:03 Basic Metabolic Profile Ordered. EDMS 20:03 CBC with Diff Ordered. EDMS 20:03 Cardiac Injury Profile Ordered. EDMS 20:03 Lipase Ordered. EDMS 20:03 Liver Profile Ordered. EDMS 20:03 Partial Thromboplastin Time Ordered. EDMS 20:03 Prothrombin Time Profile\E\INR Ordered. EDMS 20:03 Troponin Ordered. EDMS 20:04 NOTHING BY MOUTH+DIET ordered. EDMS 20:06 -Blood Culture (Adults Only), peripheral from different site, or from device/port/PICC ml3 etc. if present complete. 20:08 BLOOD CULTURES Ordered. EDMS 20:30 Silver Nitrate Applicators 75 %-25 % 1 applic Topical once ordered. mm11 21:12 CBC with Diff Reviewed. mm11 21:12 Prothrombin Time Profile\E\INR Reviewed. mm11 21:12 Partial Thromboplastin Time Reviewed. mm11 22:10 Basic Metabolic Profile Reviewed. mm11 22:10 Cardiac Injury Profile Reviewed. mm11 22:10 Liver Profile Reviewed. mm11 22:10 Amylase Reviewed. mm11 22:10 Lipase Reviewed. mm11 22:10 Troponin Reviewed. mm11 22:32 Financial registration complete. gjb 22:57 Abdomen, Flat\E\Upright,PA Chest Ordered. EDMS 23:21 [facility] Payment Agreement was scanned into [employer] and attached to record. gjb 05/10 11:09 T-Sheet-- Draft Copy was scanned into [employer] and attached to record. gb Administered Medications: 05/09 20:52 Drug: Metoclopramide 10 mg [metoclopramide 5 mg/mL injection solution] Route: IV; Rate: ko2 40 mg/hr; Infused Over: 15 mins; Site: right antecubital; 20:52 Drug: NS 0.9% 500 ml [sodium chloride 0.9 % intravenous solution] Route: IV; Rate: ko2 bolus; Site: left antecubital; 20:56 Drug: Silver Nitrate Applicators 1 applic [silver nitrate applicators 75 %-25 % topical ko2 stick (1 applic)] {Note: Dr miller given Silver nitrate stick.} Route: Topical; Site: face; Signatures: Dispatcher [employer] EDMS Nalini Maurer, Reg Reg gb Derrick Galarza, Coordinator [employer] Unit ml3 Maynor Miller, DO mm11 Kavitha YatesRN Emely Mka RN RN ko2 Beck, Gabriela gjb The chart was reviewed and I authenticate all verbal orders and agree with the evaluation and treatment provided.Attachments: 23:21 [facility] Payment Agreement gjb 05/10 11:09 T-Sheet-- Draft Copy gb Chart Complete MTDD
--- NOTE | 2016-05-12 01:17 | EDDOCDS ---
Physician Documentation [facility] Name: Mayte Weathers Age: 76 yrs Sex: Female : 1940 Arrival Date: 05/09/2016 Time: 19:21 Bed 17 Private MD: Meaghan Boyer T Disposition: 05/10/16 00:07 Discharged to Home/Self Care. Impression: Epistaxis - right nares, controlled with cauterization, Nausea and vomiting. - Condition is Stable. - Discharge Instructions: Nosebleed, Nausea and Vomiting, Nosebleed, [id number]. - Prescriptions for Reglan 10 mg Oral Tablet - take 1 tablet by ORAL route every 6 hours take 30 minutes before meals and at bedtime; 20 tablet. - Medication Reconciliation, Local Pharmacy Hours form. - Follow up: Private Physician; When: 2 - 3 days; Reason: Continuance of care. - Problem is an acute exacerbation. - Symptoms have improved. Historical: - Allergies: Percocet (Vomit); - Home Meds: 1. Xarelto 15 mg oral tab daily 2. omeprazole 20 mg Oral cpDR once daily 3. lisinopril 10 mg oral tab once daily 4. pravastatin 20 mg oral tab once daily 5. Calcium Gluconate 600mg Oral twice a day 6. Vitamin D Oral 500 unit twice a day 7. rao med curcumin 375mg daily 8. 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 No barriers to communication noted, The patient speaks fluent Frisian, Speaks appropriately for age. - Family history: Not pertinent. - : The pt / caregiver states he / she is not on anticoagulants. Home medication list is obtained from the patient. - Exposure Risk Screening:: None identified. Vital Signs: 05/09 19:23 BP 126 / 87; Pulse 122; Resp 18; Temp 97.1; Pulse Ox 97% ; Weight 61.23 kg / 134.99 jlm lbs; Height 4 ft. 10 in. (147.32 cm); Pain 0/10; 05/10 00:05 BP 117 / 77; Pulse 83; Resp 18; Temp 97.3(TE); Pulse Ox 95% on R/A; Pain 0/10; ignacio 05/09 19:23 Body Mass Index 28.21 (61.23 kg, 147.32 cm) [facility] MDM: 05/09 20:02 -Blood Culture (Adults Only), peripheral from different site, or from device/port/PICC mm11 etc. if present ordered. 20:02 IV Saline Lock ordered. mm11 20:02 Undress patient appropriately for examination ordered. mm11 20:02 Metoclopramide 10 mg IV at 40 mg/hr once over 15 mins ordered. mm11 20:02 NS 0.9% 500 ml IV at bolus once ordered. mm11 20:03 Amylase Ordered. EDMS 20:03 Basic Metabolic Profile Ordered. EDMS 20:03 CBC with Diff Ordered. EDMS 20:03 Cardiac Injury Profile Ordered. EDMS 20:03 Lipase Ordered. EDMS 20:03 Liver Profile Ordered. EDMS 20:03 Partial Thromboplastin Time Ordered. EDMS 20:03 Prothrombin Time Profile\E\INR Ordered. EDMS 20:03 Troponin Ordered. EDMS 20:04 NOTHING BY MOUTH+DIET ordered. EDMS 20:06 -Blood Culture (Adults Only), peripheral from different site, or from device/port/PICC ml3 etc. if present complete. 20:08 BLOOD CULTURES Ordered. EDMS 20:30 Silver Nitrate Applicators 75 %-25 % 1 applic Topical once ordered. mm11 21:12 CBC with Diff Reviewed. mm11 21:12 Prothrombin Time Profile\E\INR Reviewed. mm11 21:12 Partial Thromboplastin Time Reviewed. mm11 22:10 Basic Metabolic Profile Reviewed. mm11 22:10 Cardiac Injury Profile Reviewed. mm11 22:10 Liver Profile Reviewed. mm11 22:10 Amylase Reviewed. mm11 22:10 Lipase Reviewed. mm11 22:10 Troponin Reviewed. mm11 22:32 Financial registration complete. gjb 22:57 Abdomen, Flat\E\Upright,PA Chest Ordered. EDMS 23:21 [facility] Payment Agreement was scanned into [employer] and attached to record. gjb 05/10 11:09 T-Sheet-- Draft Copy was scanned into [employer] and attached to record. gb Administered Medications: 05/09 20:52 Drug: Metoclopramide 10 mg [metoclopramide 5 mg/mL injection solution] Route: IV; Rate: ko2 40 mg/hr; Infused Over: 15 mins; Site: right antecubital; 20:52 Drug: NS 0.9% 500 ml [sodium chloride 0.9 % intravenous solution] Route: IV; Rate: ko2 bolus; Site: left antecubital; 20:56 Drug: Silver Nitrate Applicators 1 applic [silver nitrate applicators 75 %-25 % topical ko2 stick (1 applic)] {Note: Dr miller given Silver nitrate stick.} Route: Topical; Site: face; Signatures: Dispatcher [employer] EDMS Nalini Maurer, Reg Reg gb Derrick Galarza, [employer] ml3 Maynor Miller, DO mm11 Kavitha YatesRN Emely Mak RN RN ko2 Beck, Gabriela gjb The chart was reviewed and I authenticate all verbal orders and agree with the evaluation and treatment provided.Attachments: 23:21 [facility] Payment Agreement gjb 05/10 11:09 T-Sheet-- Draft Copy gb Chart Complete MTDD
== END 2016-05-10 00:16 | disposition home or self-care (01) ==
LOC: M ED 19:21
DX: R04.0 Epistaxis (principal); R11.2 Nausea with vomiting, unspecified; C56.9 Malignant neoplasm of unspecified ovary; C18.9 Malignant neoplasm of colon, unspecified; C16.9 Malignant neoplasm of stomach, unspecified; E11.9 Type 2 diabetes mellitus without complications; K21.9 Gastro-esophageal reflux disease without esophagitis; E78.00 Pure hypercholesterolemia, unspecified; I10 Essential (primary) hypertension; Z90.79 Acquired absence of other genital organ(s); Z90.49 Acquired absence of other specified parts of digestive tract; Z79.01 Long term (current) use of anticoagulants; Z79.899 Other long term (current) drug therapy; Z88.5 Allergy status to narcotic agent
CPT/HCPCS: 74022; 80048; 80076; 82150; 82550; 82553; 83690; 84484; 85025; 85610; 85730; 87040; 96374; 99284; J2765

== ENCOUNTER → 2016-05-18 | Outpatient (REF) | payer MEDICARE | LOC: M LAB REF 12:24 | PROVIDERS: ATTEND Internal Medicine Medical Oncology | DX: C56.9 Malignant neoplasm of unspecified ovary (principal) ==

== ENCOUNTER → 2016-06-02 | Outpatient (REF) | payer MEDICARE | LOC: M LAB REF 12:52 | PROVIDERS: ATTEND Internal Medicine Medical Oncology | DX: C56.9 Malignant neoplasm of unspecified ovary (principal) ==

== ENCOUNTER 2016-06-13 18:39 | Inpatient (IN) | payer MEDICARE ==
[~2016-06-13] VITALS: Ht 148.6 cm; Wt 61.8 kg
[~2016-06-13 18:39] MED LIST changes: -CALC1TAB30 PO; -LISI10TA4 PO; -LORA-376 PO; -PROC10TA PO; -ZANT1TAB PO; -ZOFR20TA PO
[2016-06-13] MEDS ORDERED: GASTROGRAFIN SOLUTION 30ML (Q9963) As Ordered ONE (19:51)
[2016-06-13] MEDS ORDERED: ONDANSETRON 4MG/2ML VIAL (J2405) As Ordered ONE ×2 (20:44→21:58)
[2016-06-13 20:55] LABS: BASO % 0.3 % (0.0-1.0); EOS % 0.7 % (0.0-3.0); LARGE UNSTAINED CELL % 0.6 % (0.0-4.0); LYMPH # 0.8 K/mm3 (1.5-4.5); LYMPH % 18.5 % (24.0-44.0); MEAN CORPUSCULAR HEMOGLOBIN 30.4 pg (27.0-33.0); MEAN CORPUSCULAR HGB CONC 33.5 g/dl (32.0-36.5); MEAN CORPUSCULAR VOLUME 90.7 fl (80.0-96.0); MONO # 0.2 K/mm3 (0.0-0.8); MONO % 4.9 % (0.0-5.0); NEUTROPHILS # 3.3 K/mm3 (1.8-7.7); NEUTROPHILS % 75.1 % (36.0-66.0); PLATELET COUNT, AUTOMATED 261 k/mm3 (150-450); RED CELL DISTRIBUTION WIDTH 17.6 % (11.5-14.5); WHITE BLOOD COUNT 4.4 K/mm3 (4.0-10.0)
[2016-06-13 21:16] LABS: ALBUMIN 3.5 GM/DL (3.2-5.2); ALBUMIN/GLOBULIN RATIO 1.17 (1.00-1.93); ALKALINE PHOSPHATASE 90 U/L (45-117); ALT/SGPT 11 U/L (12-78); ANION GAP 9 MEQ/L (8-16); AST/SGOT 11 U/L (15-37); BILIRUBIN,DIRECT 0.2 MG/DL (0.0-0.2); BILIRUBIN,TOTAL 0.6 MG/DL (0.2-1.0); BLOOD UREA NITROGEN 14 MG/DL (7-18); CALCIUM LEVEL 9.5 MG/DL (8.8-10.2); CARBON DIOXIDE LEVEL 28 MEQ/L (21-32); CHLORIDE LEVEL 101 MEQ/L (98-107); CREATININE FOR GFR 0.62 MG/DL (0.55-1.02); GLOMERULAR FILTRATION RATE > 60.0 (>39); GLUCOSE, FASTING 125 MG/DL (83-110); POTASSIUM SERUM 3.9 MEQ/L (3.5-5.1); SODIUM LEVEL 138 MEQ/L (136-145); TOTAL PROTEIN 6.5 GM/DL (6.4-8.2)
[2016-06-13] MEDS ORDERED: ISOVUE-370 76% 100ML VIAL (Q9967) As Ordered ONE (22:08)
--- NOTE | 2016-06-13 23:00 | REPUSA ---
CT of the abdomen and pelvis with contrast Clinical statement: vomiting, rule out obstruction. Technique: Multiple axial CT images were obtained from the base of the lungs through the floor of the pelvis utilizing 5 mm axial slices after administration of nonionic intravenous contrast. Coronal an d sagittal reconstructions were also obtained. No comparison is available. Findings: Chest: The visualized lung bases are clear. Abdomen: The liver, spleen, pancreas, kidneys, gallbladder, and adrenal glands are grossly unremarkab le. There is a 5 mm simple cyst in the left lobe of the liver. The aorta is within normal limits. The re is no evidence of abdominal lymphadenopathy or ascites. There is a large duodenal diverticulum. Pelvis: There is an ostomy in the left lower quadrant. The distal colon appears grossly intact, with extensive diverticulosis. However, there is severe distention of the small bowel. There is a rapid na rrowing of the small bowel adjacent to the umbilicus, where there is soft tissue thickening suspected to represent adhesions. Proximal to the site, there is a large amount of fluid and stool within the small bowel. The urinary bladder is within normal limits. The other pelvic structures appear grossly intact. There is no evidence of pelvic lymphadenopathy or ascites. Bones: There are no suspicious osseous abnormalities seen. Impression: 1. High-grade small bowel obstruction as described, likely secondary to adhesions. ER physician was notified of these findings at 10:50 PM on 06/13/2016.
[2016-06-14] MEDS ORDERED: ONDANSETRON 4MG/2ML VIAL (J2405) IV PRN (00:15)
[2016-06-14] MEDS ORDERED: KETOROLAC 30 MG/ML VIAL (J1885) IV PRN (00:15)
[2016-06-14] MEDS ORDERED: MORPHINE 2 MG/ML 1ML SYRINGE IV PRN (00:15)
[2016-06-14] MEDS ORDERED: ZOFR20TA PO (00:25)
[2016-06-14] MEDS ORDERED: LORA-376 PO (00:25)
[2016-06-14] MEDS ORDERED: PROC10TA PO (00:25)
[2016-06-14] MEDS ORDERED: LISI10TA4 PO (00:25)
[2016-06-14] MEDS ORDERED: CALC1TAB30 PO (00:25)
[2016-06-14] MEDS ORDERED: ZANT1TAB PO (00:25)
[2016-06-14 01:38] VITALS: BP 125/68
--- NOTE | 2016-06-14 01:49 | EDDOCDS ---
Physician Documentation [facility] Name: Mayte Weathers Age: 76 yrs Sex: Female : 1940 Arrival Date: 06/13/2016 Time: 18:39 Bed I8 Private MD: Meaghan Boyer T Disposition: 06/14/16 00:05 Hospitalization ordered by Evangelista Wharton for Inpatient Admission. Preliminary diagnosis is Other intestinal obstruction. - Bed requested for 4 [place]. - Status is Inpatient Admission. lf1 - Condition is Stable. - Problem is new. - Symptoms are unchanged. Historical: - Allergies: Percocet (Vomit); - Home Meds: 1. omeprazole 20 mg Oral cpDR once daily (Last dose: 06/13/2016 07:00) 2. lisinopril 10 mg Oral tab once daily (Last dose: 06/13/2016 07:00) 3. pravastatin 20 mg oral tab 1 tab once daily (Last dose: 06/13/2016 07:00) 4. lorazepam 0.5 mg Oral tab 1 tab 3 times per day (Last dose: 06/13/2016 07:00) 5. Zofran (as hydrochloride) 4 mg Oral tab 2 tabs every 8 hours (Last dose: 06/13/2016 07:00) 6. Zantac 150 mg Oral cap 1 cap 2 times per day (Last dose: 06/13/2016 07:00) 7. Compazine 10 mg Oral tab 1 tab 3 times per day (Last dose: 06/13/2016 07:00) 8. 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 No barriers to communication noted, Speaks appropriately for age. - Family history: Not pertinent. - : The pt / caregiver states he / she is not on anticoagulants. Home medication list is obtained from the patient. - Exposure Risk Screening:: None identified. Vital Signs: 06/13 18:42 BP 154 / 94 RA Sitting (auto/reg); Pulse 104; Resp 18; Temp 96.3(O); Pulse Ox 98% on jrd R/A; Weight 61.23 kg / 134.99 lbs (R); Height 4 ft. 10 in. (147.32 cm) (R); Pain 7/10; 22:37 BP 130 / 63; Pulse 100; Resp 18; Temp 97.9(O); Pulse Ox 98% on R/A; Pain 0/10; mf4 06/14 00:42 BP 100 / 67; Pulse 101; Resp 16; Temp 97.6(O); Pulse Ox 97% on R/A; Pain 0/10; lf1 01:30 BP 116 / 74; Pulse 103; Resp 17; Temp 97.4(O); Pulse Ox 96% on R/A; Pain 0/10; lf1 06/13 18:42 Body Mass Index 28.21 (61.23 kg, 147.32 cm) jrd MDM: 06/13 18:59 IV Saline Lock ordered. br1 19:00 CBC with Diff Ordered. EDMS 19:00 BMP Ordered. EDMS 19:00 Liver Profile Ordered. EDMS 19:00 Lipase Ordered. EDMS 19:23 NS 0.9% 1000 ml IV at 150 mL/hr continuous ordered. br1 19:24 CT ABD & PELVIS: IV and Oral Contrast Ordered. EDMS 19:26 Ondansetron 4 mg IVP once ordered. br1 20:26 Diatrizoate Meglumine & Sodium Liquid 10 ml PO once; mix in 290cc of water \T\ 2000 mf4 ordered. 20:26 Diatrizoate Meglumine & Sodium Liquid 10 ml PO once; mix in 290cc of water \T\ 2030 mf4 ordered. 21:43 CBC with Diff Reviewed. br1 21:43 BMP Reviewed. br1 21:43 Liver Profile Reviewed. br1 21:43 Lipase Reviewed. br1 21:44 Ondansetron 4 mg IVP once ordered. br1 22:44 Financial registration complete. zo 22:51 BED REQUEST+ADM ordered. EDMS 23:52 [facility] Payment Agreement was scanned into [employer] and attached to record. zo 06/14 00:18 Admission / Observation Status ordered. EDMS 00:19 NPO DIET ordered. EDMS 00:20 BASIC METABOLIC PROFILE Ordered. EDMS 00:20 Abdomen,Flat Plate KUB Ordered. EDMS Administered Medications: 06/13 20:26 Drug: Diatrizoate Meglumine & Sodium 10 ml [diatrizoate meglumine and diat.sodium 66 mf4 %-10 % oral solution (10 mL)] Route: PO; 20:45 Drug: Diatrizoate Meglumine & Sodium 10 ml [diatrizoate meglumine and diat.sodium 66 lf1 %-10 % oral solution (10 mL)] Route: PO; 20:53 Drug: NS 0.9% 1000 ml [sodium chloride 0.9 % intravenous solution] Route: IV; Rate: 150 lf1 mL/hr; Site: left antecubital; 20:53 Drug: Ondansetron 4 mg [ondansetron HCl 2 mg/mL intravenous solution (2 mL)] Route: lf1 IVP; Site: left antecubital; 22:03 Drug: Ondansetron 4 mg [ondansetron HCl 2 mg/mL intravenous solution (2 mL)] Route: lf1 IVP; Site: left antecubital; 22:37 Follow up: Response: Nausea is decreased mf4 22:37 Follow up: Response: Nausea is decreased mf4 Signatures: Dispatcher [employer] EDMS Rc Vazquez LisaRN RN lf1 Yadiel Torres MD MD br1 Maynor Healy RN RN ml6 Radha Watson RN RN sls1 Lorenzo Wolf,[employer] mf4 The chart was reviewed and I authenticate all verbal orders and agree with the evaluation and treatment provided.Attachments: 23:52 [facility] [place] Payment Agreement [facility]
--- NOTE | 2016-06-14 01:49 | EDDOCDS ---
Nurse's Notes [facility], [place] Name: Mayte Weathers Age: 76 yrs Sex: Female : 1940 Arrival Date: 06/13/2016 Time: 18:39 Bed I8 / 16 Private MD: Meaghan Boyer T Diagnosis: Other intestinal obstruction Presentation: 06/13 18:49 Presenting complaint: Patient states: states has had "upset" stomach and had XR done of ml6 abd, states Dr. Hester called to come in due to question of an obstruction. Adult Sepsis Screening: The patient does not have new or worsening altered mentation. Patient's respiratory rate is less than 22. Systolic blood pressure is greater than 100. Patient has a qSOFA score of 0- Negative Sepsis Screen. Suicide/Homicide risk assessment- the patient denies having any suicidal and/or homicidal ideations and does not present with any other emotional, behavioral or mental health complaints. Status: Patient is not a manager office services or dependent. Transition of care: patient was not received from another setting of care. 18:49 Acuity: QUIRINO Level 3 ml6 18:49 Method Of Arrival: Walkin/Carried/Asstd ml6 Triage Assessment: 18:55 General: Appears in no apparent distress, Behavior is appropriate for age, cooperative. ml6 Pain: Denies pain. GI: Abdomen is flat, non- distended Colostomy site Bowel sounds hypoactive in right lower quadrant and left lower quadrant. Injury Description: No known injury. Historical: - Allergies: Percocet (Vomit); - Home Meds: 1. omeprazole 20 mg Oral cpDR once daily (Last dose: 06/13/2016 07:00) 2. lisinopril 10 mg Oral tab once daily (Last dose: 06/13/2016 07:00) 3. pravastatin 20 mg oral tab 1 tab once daily (Last dose: 06/13/2016 07:00) 4. lorazepam 0.5 mg Oral tab 1 tab 3 times per day (Last dose: 06/13/2016 07:00) 5. Zofran (as hydrochloride) 4 mg Oral tab 2 tabs every 8 hours (Last dose: 06/13/2016 07:00) 6. Zantac 150 mg Oral cap 1 cap 2 times per day (Last dose: 06/13/2016 07:00) 7. Compazine 10 mg Oral tab 1 tab 3 times per day (Last dose: 06/13/2016 07:00) 8. 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 No barriers to communication noted, Speaks appropriately for age. - Family history: Not pertinent. - : The pt / caregiver states he / she is not on anticoagulants. Home medication list is obtained from the patient. - Exposure Risk Screening:: None identified. Screenin:53 Screening information is obtained from the patient. Fall risk: No risks identified. lf1 Assistance ADL's: requires no assistance with activities of daily living. Abuse/DV Screen: The patient / caregiver reports he/she is: not in a situation that causes fear, pain or injury. Nutritional screening: decreased appetite. home support is adequate. Assessment: 20:53 Adult Sepsis Screening: The patient does not have new or worsening altered mentation. lf1 Patient's respiratory rate is less than 22. Systolic blood pressure is greater than 100. Patient has a qSOFA score of 0- Negative Sepsis Screen. General: Appears ill, Behavior is cooperative. Pain: Denies pain. Neurological: Level of Consciousness is awake, alert, obeys commands, Oriented to person, place, time. EENT: No deficits noted. Cardiovascular: Chest pain is denied. Respiratory: Respiratory effort is even, unlabored, Respiratory pattern is regular. GI: Abdomen is non- distended Bowel sounds present in right upper quadrant, left upper quadrant and right lower quadrant Abd is soft and non tender Reports cramping, vomiting, intolerance of food. GI: Colostomy site is clean and dry. Ostomy appliance is intact. Derm: Skin is normal. 22:04 General: Appears ill, Behavior is cooperative, Pt reports that she is unable to lf1 tolerate the contrast and will not drink the second cup. Pt. medicated with 2nd dose of zofran. Provider notified. 22:13 General: Appears ill, Behavior is cooperative. Pain: Denies pain. Neurological: Level lf1 of Consciousness is awake, alert, obeys commands. Respiratory: Respiratory effort is even, unlabored. GI: Reports nausea. Derm: Skin is normal. 23:30 Adult Sepsis Screening: The patient does not have new or worsening altered mentation. lf1 Patient's respiratory rate is less than 22. Systolic blood pressure is greater than 100. Patient has a qSOFA score of 0- Negative Sepsis Screen. General: Appears ill, Behavior is cooperative. Pain: Denies pain. Neurological: Level of Consciousness is awake, alert. Respiratory: Respiratory effort is even, unlabored. GI: Reports nausea. 06/14 00:42 Adult Sepsis Screening: The patient does not have new or worsening altered mentation. lf1 Patient's respiratory rate is less than 22. Systolic blood pressure is less than or equal to 100 (1 point). Patient has a qSOFA score of 1- Negative Sepsis Screen. General: Appears ill, Behavior is cooperative. Pain: Denies pain. Neurological: Level of Consciousness is awake, alert, obeys commands, Oriented to person, place, time. EENT: No deficits noted. Cardiovascular: Chest pain is denied. Respiratory: Respiratory effort is even, unlabored. GI: Ostomy appliance is intact. No output since yesterday Reports cramping, intolerance of food. Derm: Skin is pale. 01:15 General: Admission nurse at bedside. lf1 01:30 Adult Sepsis Screening: The patient does not have new or worsening altered mentation. lf1 Patient's respiratory rate is less than 22. Systolic blood pressure is greater than 100. Patient has a qSOFA score of 0- Negative Sepsis Screen. General: Appears ill, Behavior is cooperative. Pain: Denies pain. Neurological: Level of Consciousness is awake, alert. EENT: No deficits noted. Cardiovascular: Chest pain is denied. Respiratory: Respiratory effort is even, unlabored. GI: Colostomy site is clean and dry. Pt reports no output in colostomy since yesterday, no gas or stool Reports nausea, vomiting. Derm: Skin is pale. Vital Signs: 06/13 18:42 BP 154 / 94 RA Sitting (auto/reg); Pulse 104; Resp 18; Temp 96.3(O); Pulse Ox 98% on jrd R/A; Weight 61.23 kg (R); Height 4 ft. 10 in. (147.32 cm) (R); Pain 7/10; 22:37 BP 130 / 63; Pulse 100; Resp 18; Temp 97.9(O); Pulse Ox 98% on R/A; Pain 0/10; mf4 06/14 00:42 BP 100 / 67; Pulse 101; Resp 16; Temp 97.6(O); Pulse Ox 97% on R/A; Pain 0/10; lf1 01:30 BP 116 / 74; Pulse 103; Resp 17; Temp 97.4(O); Pulse Ox 96% on R/A; Pain 0/10; lf1 06/13 18:42 Body Mass Index 28.21 (61.23 kg, 147.32 cm) [facility] Vitals: 06/13 18:42 Log In Time: June 13, 2016 at 18:38. [facility] ED Course: 18:41 Patient visited by Will Davies PCA. jrd 18:41 Patient moved to Waiting jrd 18:42 Meaghan Boyer is Private Physician. jrd 18:43 Patient visited by Will Davies PCA. jrd 18:43 Patient moved to Pre RCE jrd 18:50 Triage Initiated ml6 18:56 Patient moved to I8 / 16 ml6 18:58 Yadiel Torres MD is Attending Physician. br1 19:26 Patient visited by Yadiel Torres MD. br1 20:37 Lipase Sent. mb9 20:37 Liver Profile Sent. mb9 20:37 BMP Sent. mb9 20:37 CBC with Diff Sent. mb9 20:38 Inserted saline lock: 20 gauge in left antecubital area and blood collected. mb9 20:53 The patient / caregiver is instructed regarding the plan of care and ED course. lf1 Accompanied by Family Member, Patient has correct armband on for positive identification. Placed in gown. Bed in low position. Call light in reach. 20:57 Patient visited by Evie Eugene,RN. lf1 22:14 Patient visited by Evie Eugene,NAYAN. lf1 22:37 Lorenzo Wolf LPN is Primary Nurse. mf4 23:25 Patient visited by Yadiel Torres MD. br1 23:52 [facility] [place] was scanned into [employer] and attached to record. zo 23:55 CT ABD & PELVIS: IV and Oral Contrast Returned. EDMS 02/21 00:05 [place], Evangelista is Hospitalizing Provider. br1 00:41 Patient visited by Evie Eugene RN. lf1 01:11 Patient visited by Evie Eugene RN. lf1 01:30 Patient visited by Evie Eugene,NAYAN. lf1 01:30 No procedures done that require assistance. lf1 Administered Medications: 06/13 20:26 Drug: Diatrizoate Meglumine & Sodium 10 ml [diatrizoate meglumine and diat.sodium 66 mf4 %-10 % oral solution (10 mL)] Route: PO; 20:45 Drug: Diatrizoate Meglumine & Sodium 10 ml [diatrizoate meglumine and diat.sodium 66 lf1 %-10 % oral solution (10 mL)] Route: PO; 20:53 Drug: NS 0.9% 1000 ml [sodium chloride 0.9 % intravenous solution] Route: IV; Rate: 150 lf1 mL/hr; Site: left antecubital; 20:53 Drug: Ondansetron 4 mg [ondansetron HCl 2 mg/mL intravenous solution (2 mL)] Route: lf1 IVP; Site: left antecubital; 22:03 Drug: Ondansetron 4 mg [ondansetron HCl 2 mg/mL intravenous solution (2 mL)] Route: lf1 IVP; Site: left antecubital; 22:37 Follow up: Response: Nausea is decreased mf4 22:37 Follow up: Response: Nausea is decreased mf4 Order Results: Lab Order: CBC with Diff; SPEC'M 06/13/16 20:34 Test: WHITE BLOOD COUNT; Value: 4.4; Range: 4.0-10.0; Units: K/mm3; Status: F Test: RED BLOOD COUNT; Value: 3.93; Range: 4.00-5.40; Abnormal: Below low normal; Units: M/mm3; Status: F Test: HEMOGLOBIN; Value: 12.0; Range: 12.0-16.0; Units: g/dl; Status: F Test: HEMATOCRIT; Value: 35.7; Range: 36.0-47.0; Abnormal: Below low normal; Units: %; Status: F Test: MEAN CORPUSCULAR VOLUME; Value: 90.7; Range: 80.0-96.0; Units: fl; Status: F Test: MEAN CORPUSCULAR HEMOGLOBIN; Value: 30.4; Range: 27.0-33.0; Units: pg; Status: F Test: MEAN CORPUSCULAR HGB CONC; Value: 33.5; Range: 32.0-36.5; Units: g/dl; Status: F Test: RED CELL DISTRIBUTION WIDTH; Value: 17.6; Range: 11.5-14.5; Abnormal: Above high normal; Units: %; Status: F Test: PLATELET COUNT, AUTOMATED; Value: 261; Range: 150-450; Units: k/mm3; Status: F Test: NEUTROPHILS %; Value: 75.1; Range: 36.0-66.0; Abnormal: Above high normal; Units: %; Status: F Test: LYMPH %; Value: 18.5; Range: 24.0-44.0; Abnormal: Below low normal; Units: %; Status: F Test: MONO %; Value: 4.9; Range: 0.0-5.0; Units: %; Status: F Test: EOS %; Value: 0.7; Range: 0.0-3.0; Units: %; Status: F Test: BASO %; Value: 0.3; Range: 0.0-1.0; Units: %; Status: F Test: LARGE UNSTAINED CELL %; Value: 0.6; Range: 0.0-4.0; Units: %; Status: F Test: NEUTROPHILS #; Value: 3.3; Range: 1.8-7.7; Units: K/mm3; Status: F Test: LYMPH #; Value: 0.8; Range: 1.5-4.5; Abnormal: Below low normal; Units: K/mm3; Status: F Test: MONO #; Value: 0.2; Range: 0.0-0.8; Units: K/mm3; Status: F Test: EOS #; Value: 0.0; Range: 0.0-0.50; Units: K/mm3; Status: F Test: BASO #; Value: 0.0; Range: 0.0-0.2; Units: K/mm3; Status: F Test: LARGE UNSTAINED CELL #; Value: 0.0; Range: 0.0-0.4; Units: K/mm3; Status: F Lab Order: BMP; SPEC'M 06/13/16 20:34 Test: GLUCOSE, FASTING; Value: 125; Range: 83-110; Abnormal: Above high normal; Units: MG/DL; Status: F Test: BLOOD UREA NITROGEN; Value: 14; Range: 7-18; Units: MG/DL; Status: F Test: CREATININE FOR GFR; Value: 0.62; Range: 0.55-1.02; Units: MG/DL; Status: F Test: GLOMERULAR FILTRATION RATE; Value: > 60.0; Range: >39; Status: F Test: SODIUM LEVEL; Value: 138; Range: 136-145; Units: MEQ/L; Status: F Test: POTASSIUM SERUM; Value: 3.9; Range: 3.5-5.1; Units: MEQ/L; Status: F Test: CHLORIDE LEVEL; Value: 101; Range: 98-107; Units: MEQ/L; Status: F Test: CARBON DIOXIDE LEVEL; Value: 28; Range: 21-32; Units: MEQ/L; Status: F Test: ANION GAP; Value: 9; Range: 8-16; Units: MEQ/L; Status: F Test: CALCIUM LEVEL; Value: 9.5; Range: 8.8-10.2; Units: MG/DL; Status: F Test Note: ; Units are mL/min/1.73 m2 Chronic Kidney Disease Staging per NKF: Stage I & II GFR >=60 Normal to Mildly Decreased Stage III GFR 30-59 Moderately Decreased Stage IV GFR 15-29 Severely Decreased Stage V GFR <15 Very Little GFR Left ESRD GFR <15 on SH[employer] Lab Order: Liver Profile; SPEC'M 06/13/16 20:34 Test: AST/SGOT; Value: 11; Range: 15-37; Abnormal: Below low normal; Units: U/L; Status: F Test: ALT/SGPT; Value: 11; Range: 12-78; Abnormal: Below low normal; Units: U/L; Status: F Test: ALKALINE PHOSPHATASE; Value: 90; Range: 45-117; Units: U/L; Status: F Test: BILIRUBIN,TOTAL; Value: 0.6; Range: 0.2-1.0; Units: MG/DL; Status: F Test: BILIRUBIN,DIRECT; Value: 0.2; Range: 0.0-0.2; Units: MG/DL; Status: F Test: TOTAL PROTEIN; Value: 6.5; Range: 6.4-8.2; Units: GM/DL; Status: F Test: ALBUMIN; Value: 3.5; Range: 3.2-5.2; Units: GM/DL; Status: F Test: ALBUMIN/GLOBULIN RATIO; Value: 1.17; Range: 1.00-1.93; Status: F Lab Order: Lipase; SPEC'M 06/13/16 20:34 Test: LIPASE; Value: 95; Range: 73-393; Units: U/L; Status: F Radiology Order: CT ABD & PELVIS: IV and Oral Contrast Test: CT ABD & PELVIS: IV and Oral Contrast REASON FOR EXAMINATION: vomiting r/o sbo; ; CT of the abdomen and pelvis with contrast; Clinical statement: vomiting, rule out obstruction.; Technique: Multiple axial CT images were obtained from the base of the lungs through the floor of the; pelvis utilizing 5 mm axial slices after administration of nonionic intravenous contrast. Coronal an; d sagittal reconstructions were also obtained.; No comparison is available.; Findings:; Chest: The visualized lung bases are clear.; Abdomen: The liver, spleen, pancreas, kidneys, gallbladder, and adrenal glands are grossly unremarkab; le. There is a 5 mm simple cyst in the left lobe of the liver. The aorta is within normal limits. The; re is no evidence of abdominal lymphadenopathy or ascites. There is a large duodenal diverticulum.; Pelvis: There is an ostomy in the left lower quadrant. The distal colon appears grossly intact, with; extensive diverticulosis. However, there is severe distention of the small bowel. There is a rapid na; rrowing of the small bowel adjacent to the umbilicus, where there is soft tissue thickening suspected; to represent adhesions. Proximal to the site, there is a large amount of fluid and stool within the; small bowel. The urinary bladder is within normal limits. The other pelvic structures appear grossly; intact. There is no evidence of pelvic lymphadenopathy or ascites.; Bones: There are no suspicious osseous abnormalities seen.; Impression:; 1. High-grade small bowel obstruction as described, likely secondary to adhesions.; ER physician was notified of these findings at 10:50 PM on 06/13/2016.; ; ; Outcome: 06/14 00:05 Decision to Hospitalize by Provider. br1 01:48 Discharge Assessment: Patient awake, alert and oriented x 3. No cognitive and/or lf1 functional deficits noted. Patient verbalized understanding of disposition instructions. Patient awake and alert. Oriented to person, place and time. patient administered narcotics - no. The following High Risk Discharge criteria are identified: None. Admitted to Med/Surg accompanied by tech, via stretcher, with chart. Condition: unchanged. CT Study completed. Property :Personal belongings accompany Pt. 01:49 Patient left the ED. lf1 Signatures: Dispatcher [employer] EDMS Rc Vazquez Lisa,RN RN lf1 Yadiel Torres MD MD br1 Maynor Healy, RN RN ml6 Lorenzo Wolf,WATCH CRYSTAL MOLDER WATCH CRYSTAL MOLDER mf4 Will Davies PCA FRONT EDGER Mynor Sands,RN RN mb9 MTDD
[2016-06-14] MEDS: LR 1,000 ML IV SCH ×3 (01:50→16:31)
[2016-06-14 06:00] VITALS: BP 111/58
[2016-06-14 06:24] LABS: ANION GAP 11 MEQ/L (8-16); BLOOD UREA NITROGEN 12 MG/DL (7-18); CARBON DIOXIDE LEVEL 28 MEQ/L (21-32); CHLORIDE LEVEL 101 MEQ/L (98-107); CREATININE FOR GFR 0.56 MG/DL (0.55-1.02); GLOMERULAR FILTRATION RATE > 60.0 (>39); GLUCOSE, FASTING 118 MG/DL (83-110); POTASSIUM SERUM 3.4 MEQ/L (3.5-5.1); SODIUM LEVEL 140 MEQ/L (136-145)
[2016-06-14] MEDS: PANTOPRAZOLE 40MG INJ (PROTONIX) (C9113) IV SCH (08:36)
[2016-06-14 10:00] VITALS: BP 139/90
--- NOTE | 2016-06-14 10:26 | REP ---
Clinical: Small bowel obstruction. Technique: Two supine views of the abdomen and pelvis. Findings: By supine evaluation the bowel gas pattern is nonspecific. Ostomy identified over the left lower abdomen/pelvis. Nasogastric tube identified in the left upper quadrant. Surgical clips overlie the abdomen and pelvis. Contrast noted in the renal collecting system related to recent CT exam. Impression: Supine radiographs demonstrate nonspecific bowel gas pattern. Signed by Charles Lopez MD 06/14/2016 10:17 A
--- NOTE | 2016-06-14 12:29 | HPE ---
DATE OF ADMISSION: 06/14/2016 ADMITTING DIAGNOSIS: Small bowel obstruction. HISTORY OF PRESENT ILLNESS: The patient is a pleasant, 76-year-old woman who has been undergoing treatment for metastatic ovarian cancer over the last 14 months or so. In March of 2015, she had presented with a colonic obstruction. At surgery, she was found to have metastatic disease of possible ovarian origin. Multiple biopsies were obtained and a diverting colostomy was performed. Biopsies were confirmatory for ovarian cancer. Once the patient had recovered from the surgery, she underwent treatment with chemotherapy and in August or September 2015, she underwent an open hysterectomy with bilateral salpingo-oophorectomy for her ovarian cancer. She apparently did well and resumed chemotherapy after recovering from her surgery. She has continued chemotherapy with now weekly doses of Taxol intravenously. She most recently had a dose on , 06/09/2016. With the last several doses, she has developed some nausea and vomiting within a day or two following the chemotherapy dose. After this dose, she developed nausea. She had some vomiting on and off. She developed some intermittent crampy abdominal pains. For the last 24 hours or so, she has noticed that her colostomy has had no output, even gas. She has remained nauseous but has not vomited since coming to the emergency department at about 1839 hours on 06/13/2016. She was evaluated with a abdominal x-ray followed by a CT scan of the abdomen and pelvis, which showed some dilated loops of small bowel in the mid abdomen consistent with an intestinal obstruction. The patient is now being admitted for management of her intestinal blockage. ALLERGIES: The patient reports that PERCOCET has caused emesis in the past. Her home medications currently include: - omeprazole 20 mg by mouth daily - lisinopril 10 mg by mouth once daily - pravastatin 20 mg by mouth daily - lorazepam 0.5 mg one tablet by mouth three times daily as needed - Zofran 8 mg every 8 hours as needed - Zantac 150 mg by mouth twice daily - Compazine 10 mg one tablet by mouth three times a day - weekly injections of Taxol MEDICAL HISTORY: The patient has a history of diabetes, but since losing weight during the treatment of her tumor this has resolved and she is on no medications. She has a history of gastroesophageal reflux disease. There is a history of high cholesterol and hypertension. She has a history of ovarian carcinoma, currently undergoing chemotherapy. PAST SURGICAL HISTORY: She has had bilateral knee replacement. She has had colonoscopies previously. She has had bilateral cataract surgery. She had her colostomy created in March of 2015 and had her hysterectomy in August or September of 2015. SOCIAL HISTORY: The patient is . She is a never smoker. Family history is noncontributory. REVIEW OF SYSTEMS: The patient denies any chest pain or palpitations. She denies any cardiac history. She denies any cough, wheezing or sputum production. She has been nauseous and threw up several times today, but not since coming to the emergency department. She did have some oral contrast administered for her CT scan. She has had no output from her colostomy today. The patient reports that she has been voiding adequately. She denies any history of deep venous thrombosis. She is ambulatory under her own power. PHYSICAL EXAMINATION: Patient is lying quietly on a stretcher in the emergency department. She appears awake and alert. She has sparse hair on her head. She appears somewhat tired. Her most recent vital signs show blood pressure of 130/63 with a pulse of 100, respirations of 18, temperature of 97.9. Weight is recorded as 61 kg with a height of 58 inches. The sclerae are anicteric. Mucous membranes are tacky to moist. Her neck is supple without palpable mass. Heart exam reveals a regular rate and rhythm. The lungs are clear to auscultation bilaterally. The abdomen shows an ostomy appliance in the left lower quadrant. There is a minimal spot of stool at the opening at the ostomy. The bag is otherwise empty. The abdomen is fairly quiet to auscultation. She has an old midline scar. There is no sign of hernia. There is no tympany to percussion and no significant tenderness to percussion. The abdomen is full to palpation in the mid lower abdomen and right lower quadrant. Palpation reveals some fullness in the lower abdomen, but again does not disclose significant tenderness to palpation. The lower extremities are without significant edema. She has palpable radial and pedal pulses. Her laboratory studies include a CBC that shows a white count of 4.4, with a hemoglobin of 12, hematocrit of 36 and a platelet count of 261,000. Differential count shows 75% neutrophils and 19% lymphocytes. Chemistry profile shows normal electrolytes, BUN and creatinine, with a glucose of 125. Liver function tests are normal. Total protein is 6.5 with an albumin of 3.5 and the lipase is 95. The patient's CT scan showed several dilated loops of small bowel filled with air and fluid. The ostomy is noted. The radiologist felt the findings were consistent with a high-grade small bowel obstruction. The stomach is full of contrast. IMPRESSION: 1. Small bowel obstruction secondary to adhesions and possible residual ovarian carcinoma. 2. History of metastatic ovarian carcinoma undergoing chemotherapy. 3. Hypercholesterolemia. 4. Hypertension. 5. Gastroesophageal reflux. 6. History of diabetes mellitus. PLAN: At this point, the patient does appear to have a small bowel obstruction. Her ostomy has had no output for the last 24 hours or so, and she has been nauseous. As she has a stomach largely full of contrast, I think placement of the nasogastric (NG) tube would be appropriate. She will be continued on intravenous (IV) fluid with Ringer's lactate at 125 cc/hr. I will start her on daily IV Protonix. Zofran will be administered as necessary for nausea. She will be kept nothing by mouth. It may be that she can resolve this without the need for surgical intervention. It is likewise possible that this will not resolve and that surgical intervention will be absolutely required to resolve this. It is unclear what the status of her tumor is currently. She has been having serial CA-125 determinations over the last 6 months or so. These show that her CA-125 was normal on 12/30/2015, but miguelito rapidly over the next 2-3 months to the 340-600 range. It has since come down to 98 on 06/02/2016 following her current chemotherapy. We will recheck a chemistry profile in the morning. The patient was counseled regarding the plan for care. I do think that the NG tube is appropriate given the degree of dilation of the small bowel and the amount of fluid retained in her stomach. A repeat KUB will be obtained in the morning to see if there has been any progress with transit of the oral contrast and to reassess her bowel gas distribution.
[2016-06-14 14:00] VITALS: BP 126/77
[2016-06-14] MEDS: POTASSIUM CHLORIDE INJ 20 MEQ in D5W/LR 1,000 ML IV SCH (18:37)
[2016-06-14 22:00] VITALS: BP 138/88
[2016-06-15 02:00] VITALS: BP 110/70
[2016-06-15] MEDS: POTASSIUM CHLORIDE INJ 20 MEQ in D5W/LR 1,000 ML IV SCH ×2 (02:34→13:11)
[2016-06-15 06:00] VITALS: BP 125/73
[2016-06-15 06:22] LABS: BASO % 0.3 % (0.0-1.0); LARGE UNSTAINED CELL % 1.1 % (0.0-4.0); LYMPH # 0.7 K/mm3 (1.5-4.5); LYMPH % 16.8 % (24.0-44.0); MEAN CORPUSCULAR HEMOGLOBIN 30.2 pg (27.0-33.0); MEAN CORPUSCULAR VOLUME 91.5 fl (80.0-96.0); MONO # 0.3 K/mm3 (0.0-0.8); MONO % 7.2 % (0.0-5.0); NEUTROPHILS # 2.8 K/mm3 (1.8-7.7); NEUTROPHILS % 73.6 % (36.0-66.0); PLATELET COUNT, AUTOMATED 183 k/mm3 (150-450); RED CELL DISTRIBUTION WIDTH 17.8 % (11.5-14.5); WHITE BLOOD COUNT 3.7 K/mm3 (4.0-10.0)
[2016-06-15 06:42] LABS: ALBUMIN 2.5 GM/DL (3.2-5.2); ALBUMIN/GLOBULIN RATIO 0.96 (1.00-1.93); ALKALINE PHOSPHATASE 69 U/L (45-117); ALT/SGPT 9 U/L (12-78); ANION GAP 7 MEQ/L (8-16); AST/SGOT 12 U/L (15-37); BILIRUBIN,TOTAL 0.3 MG/DL (0.2-1.0); BLOOD UREA NITROGEN 11 MG/DL (7-18); CALCIUM LEVEL 8.2 MG/DL (8.8-10.2); CARBON DIOXIDE LEVEL 28 MEQ/L (21-32); CHLORIDE LEVEL 108 MEQ/L (98-107); CREATININE FOR GFR 0.66 MG/DL (0.55-1.02); GLOMERULAR FILTRATION RATE > 60.0 (>39); GLUCOSE, FASTING 132 MG/DL (83-110); POTASSIUM SERUM 3.8 MEQ/L (3.5-5.1); SODIUM LEVEL 143 MEQ/L (136-145); TOTAL PROTEIN 5.1 GM/DL (6.4-8.2)
[2016-06-15] MEDS: ENOXAPARIN 40 MG/0.4 ML SYRINGE (J1650) SC SCH (09:06)
[2016-06-15] MEDS: PANTOPRAZOLE 40MG INJ (PROTONIX) (C9113) IV SCH (09:06)
[2016-06-15 10:00] VITALS: BP 114/64
[2016-06-15 14:00] VITALS: BP 130/70
[2016-06-15 18:00] VITALS: BP 129/73
[2016-06-15 22:00] VITALS: BP 121/71
[2016-06-16 02:00] VITALS: BP 139/84
[2016-06-16] MEDS: POTASSIUM CHLORIDE INJ 20 MEQ in D5W/LR 1,000 ML IV SCH ×2 (02:00→14:48)
--- NOTE | 2016-06-16 02:50 | EDDOCDS ---
Nurse's Notes [facility] Name: Mayte Weathers Age: 76 yrs Sex: Female : 1940 Arrival Date: 06/13/2016 Time: 18:39 Bed I8 / 16 Private MD: Meaghan Boyer T Diagnosis: Other intestinal obstruction Presentation: 06/13 18:49 Presenting complaint: Patient states: states has had "upset" stomach and had XR done of ml6 abd, states Dr. Hester called to come in due to question of an obstruction. Adult Sepsis Screening: The patient does not have new or worsening altered mentation. Patient's respiratory rate is less than 22. Systolic blood pressure is greater than 100. Patient has a qSOFA score of 0- Negative Sepsis Screen. Suicide/Homicide risk assessment- the patient denies having any suicidal and/or homicidal ideations and does not present with any other emotional, behavioral or mental health complaints. Status: Patient is not a health services coordinator or dependent. Transition of care: patient was not received from another setting of care. 18:49 Acuity: QUIRINO Level 3 ml6 18:49 Method Of Arrival: Walkin/Carried/Asstd ml6 Triage Assessment: 18:55 General: Appears in no apparent distress, Behavior is appropriate for age, cooperative. ml6 Pain: Denies pain. GI: Abdomen is flat, non- distended Colostomy site Bowel sounds hypoactive in right lower quadrant and left lower quadrant. Injury Description: No known injury. Historical: - Allergies: Percocet (Vomit); - Home Meds: 1. omeprazole 20 mg Oral cpDR once daily (Last dose: 06/13/2016 07:00) 2. lisinopril 10 mg Oral tab once daily (Last dose: 06/13/2016 07:00) 3. pravastatin 20 mg oral tab 1 tab once daily (Last dose: 06/13/2016 07:00) 4. lorazepam 0.5 mg Oral tab 1 tab 3 times per day (Last dose: 06/13/2016 07:00) 5. Zofran (as hydrochloride) 4 mg Oral tab 2 tabs every 8 hours (Last dose: 06/13/2016 07:00) 6. Zantac 150 mg Oral cap 1 cap 2 times per day (Last dose: 06/13/2016 07:00) 7. Compazine 10 mg Oral tab 1 tab 3 times per day (Last dose: 06/13/2016 07:00) 8. 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 No barriers to communication noted, Speaks appropriately for age. - Family history: Not pertinent. - : The pt / caregiver states he / she is not on anticoagulants. Home medication list is obtained from the patient. - Exposure Risk Screening:: None identified. Screenin:53 Screening information is obtained from the patient. Fall risk: No risks identified. lf1 Assistance ADL's: requires no assistance with activities of daily living. Abuse/DV Screen: The patient / caregiver reports he/she is: not in a situation that causes fear, pain or injury. Nutritional screening: decreased appetite. home support is adequate. Assessment: 20:53 Adult Sepsis Screening: The patient does not have new or worsening altered mentation. lf1 Patient's respiratory rate is less than 22. Systolic blood pressure is greater than 100. Patient has a qSOFA score of 0- Negative Sepsis Screen. General: Appears ill, Behavior is cooperative. Pain: Denies pain. Neurological: Level of Consciousness is awake, alert, obeys commands, Oriented to person, place, time. EENT: No deficits noted. Cardiovascular: Chest pain is denied. Respiratory: Respiratory effort is even, unlabored, Respiratory pattern is regular. GI: Abdomen is non- distended Bowel sounds present in right upper quadrant, left upper quadrant and right lower quadrant Abd is soft and non tender Reports cramping, vomiting, intolerance of food. GI: Colostomy site is clean and dry. Ostomy appliance is intact. Derm: Skin is normal. 22:04 General: Appears ill, Behavior is cooperative, Pt reports that she is unable to lf1 tolerate the contrast and will not drink the second cup. Pt. medicated with 2nd dose of zofran. Provider notified. 22:13 General: Appears ill, Behavior is cooperative. Pain: Denies pain. Neurological: Level lf1 of Consciousness is awake, alert, obeys commands. Respiratory: Respiratory effort is even, unlabored. GI: Reports nausea. Derm: Skin is normal. 23:30 Adult Sepsis Screening: The patient does not have new or worsening altered mentation. lf1 Patient's respiratory rate is less than 22. Systolic blood pressure is greater than 100. Patient has a qSOFA score of 0- Negative Sepsis Screen. General: Appears ill, Behavior is cooperative. Pain: Denies pain. Neurological: Level of Consciousness is awake, alert. Respiratory: Respiratory effort is even, unlabored. GI: Reports nausea. 06/14 00:42 Adult Sepsis Screening: The patient does not have new or worsening altered mentation. lf1 Patient's respiratory rate is less than 22. Systolic blood pressure is less than or equal to 100 (1 point). Patient has a qSOFA score of 1- Negative Sepsis Screen. General: Appears ill, Behavior is cooperative. Pain: Denies pain. Neurological: Level of Consciousness is awake, alert, obeys commands, Oriented to person, place, time. EENT: No deficits noted. Cardiovascular: Chest pain is denied. Respiratory: Respiratory effort is even, unlabored. GI: Ostomy appliance is intact. No output since yesterday Reports cramping, intolerance of food. Derm: Skin is pale. 01:15 General: Admission nurse at bedside. lf1 01:30 Adult Sepsis Screening: The patient does not have new or worsening altered mentation. lf1 Patient's respiratory rate is less than 22. Systolic blood pressure is greater than 100. Patient has a qSOFA score of 0- Negative Sepsis Screen. General: Appears ill, Behavior is cooperative. Pain: Denies pain. Neurological: Level of Consciousness is awake, alert. EENT: No deficits noted. Cardiovascular: Chest pain is denied. Respiratory: Respiratory effort is even, unlabored. GI: Colostomy site is clean and dry. Pt reports no output in colostomy since yesterday, no gas or stool Reports nausea, vomiting. Derm: Skin is pale. Vital Signs: 06/13 18:42 BP 154 / 94 RA Sitting (auto/reg); Pulse 104; Resp 18; Temp 96.3(O); Pulse Ox 98% on jrd R/A; Weight 61.23 kg (R); Height 4 ft. 10 in. (147.32 cm) (R); Pain 7/10; 22:37 BP 130 / 63; Pulse 100; Resp 18; Temp 97.9(O); Pulse Ox 98% on R/A; Pain 0/10; mf4 06/14 00:42 BP 100 / 67; Pulse 101; Resp 16; Temp 97.6(O); Pulse Ox 97% on R/A; Pain 0/10; lf1 01:30 BP 116 / 74; Pulse 103; Resp 17; Temp 97.4(O); Pulse Ox 96% on R/A; Pain 0/10; lf1 06/13 18:42 Body Mass Index 28.21 (61.23 kg, 147.32 cm) [email or web address]] Vitals: 06/13 18:42 Log In Time: June 13, 2016 at 18:38. [facility] [[email or web address]] ED Course: 18:41 Patient visited by Will Davies PCA. jrd 18:41 Patient moved to Waiting jrd 18:42 Meaghan Boyer is Private Physician. jrd 18:43 Patient visited by Will Davies PCA. jrd 18:43 Patient moved to Pre RCE jrd 18:50 Triage Initiated ml6 18:56 Patient moved to I8 / 16 ml6 18:58 Yadiel Torres MD is Attending Physician. br1 19:26 Patient visited by Yadiel Torres MD. br1 20:37 Lipase Sent. mb9 20:37 Liver Profile Sent. mb9 20:37 BMP Sent. mb9 20:37 CBC with Diff Sent. mb9 20:38 Inserted saline lock: 20 gauge in left antecubital area and blood collected. mb9 20:53 The patient / caregiver is instructed regarding the plan of care and ED course. lf1 Accompanied by Family Member, Patient has correct armband on for positive identification. Placed in gown. Bed in low position. Call light in reach. 20:57 Patient visited by Evie Eugene,RN. lf1 22:14 Patient visited by Evie Eugene,NAYAN. lf1 22:37 Lorenzo Wolf LPN is Primary Nurse. mf4 23:25 Patient visited by Yadiel Torres MD. br1 23:52 [facility] Payment Agreement was scanned into Tutor and attached to record. zo 23:55 CT ABD & PELVIS: IV and Oral Contrast Returned. EDMS 02/21 00:05 Evangelista Wharton is Hospitalizing Provider. br1 00:41 Patient visited by Evie Eugene,RN. lf1 01:11 Patient visited by Evie Eugene,RN. lf1 01:30 Patient visited by Evie Eugene,RN. lf1 01:30 No procedures done that require assistance. lf1 11:50 T-Sheet-- Draft Copy was scanned into Tutor and attached to record. gb 11:50 Radiology Report was scanned into Tutor and attached to record. gb Administered Medications: 06/13 20:26 Drug: Diatrizoate Meglumine & Sodium 10 ml [diatrizoate meglumine and diat.sodium 66 mf4 %-10 % oral solution (10 mL)] Route: PO; 20:45 Drug: Diatrizoate Meglumine & Sodium 10 ml [diatrizoate meglumine and diat.sodium 66 lf1 %-10 % oral solution (10 mL)] Route: PO; 20:53 Drug: NS 0.9% 1000 ml [sodium chloride 0.9 % intravenous solution] Route: IV; Rate: 150 lf1 mL/hr; Site: left antecubital; 06/14 01:50 Follow up: IV Status: Infusion continued upon admit [facility] 06/13 20:53 Drug: Ondansetron 4 mg [ondansetron HCl 2 mg/mL intravenous solution (2 mL)] Route: lf1 IVP; Site: left antecubital; 22:03 Drug: Ondansetron 4 mg [ondansetron HCl 2 mg/mL intravenous solution (2 mL)] Route: lf1 IVP; Site: left antecubital; 22:37 Follow up: Response: Nausea is decreased mf4 22:37 Follow up: Response: Nausea is decreased mf4 23:30 Follow up: Response: Nausea is decreased lf1 Order Results: Lab Order: CBC with Diff; SPEC'M 06/13/16 20:34 Test: WHITE BLOOD COUNT; Value: 4.4; Range: 4.0-10.0; Units: K/mm3; Status: F Test: RED BLOOD COUNT; Value: 3.93; Range: 4.00-5.40; Abnormal: Below low normal; Units: M/mm3; Status: F Test: HEMOGLOBIN; Value: 12.0; Range: 12.0-16.0; Units: g/dl; Status: F Test: HEMATOCRIT; Value: 35.7; Range: 36.0-47.0; Abnormal: Below low normal; Units: %; Status: F Test: MEAN CORPUSCULAR VOLUME; Value: 90.7; Range: 80.0-96.0; Units: fl; Status: F Test: MEAN CORPUSCULAR HEMOGLOBIN; Value: 30.4; Range: 27.0-33.0; Units: pg; Status: F Test: MEAN CORPUSCULAR HGB CONC; Value: 33.5; Range: 32.0-36.5; Units: g/dl; Status: F Test: RED CELL DISTRIBUTION WIDTH; Value: 17.6; Range: 11.5-14.5; Abnormal: Above high normal; Units: %; Status: F Test: PLATELET COUNT, AUTOMATED; Value: 261; Range: 150-450; Units: k/mm3; Status: F Test: NEUTROPHILS %; Value: 75.1; Range: 36.0-66.0; Abnormal: Above high normal; Units: %; Status: F Test: LYMPH %; Value: 18.5; Range: 24.0-44.0; Abnormal: Below low normal; Units: %; Status: F Test: MONO %; Value: 4.9; Range: 0.0-5.0; Units: %; Status: F Test: EOS %; Value: 0.7; Range: 0.0-3.0; Units: %; Status: F Test: BASO %; Value: 0.3; Range: 0.0-1.0; Units: %; Status: F Test: LARGE UNSTAINED CELL %; Value: 0.6; Range: 0.0-4.0; Units: %; Status: F Test: NEUTROPHILS #; Value: 3.3; Range: 1.8-7.7; Units: K/mm3; Status: F Test: LYMPH #; Value: 0.8; Range: 1.5-4.5; Abnormal: Below low normal; Units: K/mm3; Status: F Test: MONO #; Value: 0.2; Range: 0.0-0.8; Units: K/mm3; Status: F Test: EOS #; Value: 0.0; Range: 0.0-0.50; Units: K/mm3; Status: F Test: BASO #; Value: 0.0; Range: 0.0-0.2; Units: K/mm3; Status: F Test: LARGE UNSTAINED CELL #; Value: 0.0; Range: 0.0-0.4; Units: K/mm3; Status: F Lab Order: BMP; SPEC' 06/13/16 20:34 Test: GLUCOSE, FASTING; Value: 125; Range: 83-110; Abnormal: Above high normal; Units: MG/DL; Status: F Test: BLOOD UREA NITROGEN; Value: 14; Range: 7-18; Units: MG/DL; Status: F Test: CREATININE FOR GFR; Value: 0.62; Range: 0.55-1.02; Units: MG/DL; Status: F Test: GLOMERULAR FILTRATION RATE; Value: > 60.0; Range: >39; Status: F Test: SODIUM LEVEL; Value: 138; Range: 136-145; Units: MEQ/L; Status: F Test: POTASSIUM SERUM; Value: 3.9; Range: 3.5-5.1; Units: MEQ/L; Status: F Test: CHLORIDE LEVEL; Value: 101; Range: 98-107; Units: MEQ/L; Status: F Test: CARBON DIOXIDE LEVEL; Value: 28; Range: 21-32; Units: MEQ/L; Status: F Test: ANION GAP; Value: 9; Range: 8-16; Units: MEQ/L; Status: F Test: CALCIUM LEVEL; Value: 9.5; Range: 8.8-10.2; Units: MG/DL; Status: F Test Note: ; Units are mL/min/1.73 m2 Chronic Kidney Disease Staging per NKF: Stage I & II GFR >=60 Normal to Mildly Decreased Stage III GFR 30-59 Moderately Decreased Stage IV GFR 15-29 Severely Decreased Stage V GFR <15 Very Little GFR Left ESRD GFR <15 on [facility] Lab Order: Liver Profile; SPEC' 06/13/16 20:34 Test: AST/SGOT; Value: 11; Range: 15-37; Abnormal: Below low normal; Units: U/L; Status: F Test: ALT/SGPT; Value: 11; Range: 12-78; Abnormal: Below low normal; Units: U/L; Status: F Test: ALKALINE PHOSPHATASE; Value: 90; Range: 45-117; Units: U/L; Status: F Test: BILIRUBIN,TOTAL; Value: 0.6; Range: 0.2-1.0; Units: MG/DL; Status: F Test: BILIRUBIN,DIRECT; Value: 0.2; Range: 0.0-0.2; Units: MG/DL; Status: F Test: TOTAL PROTEIN; Value: 6.5; Range: 6.4-8.2; Units: GM/DL; Status: F Test: ALBUMIN; Value: 3.5; Range: 3.2-5.2; Units: GM/DL; Status: F Test: ALBUMIN/GLOBULIN RATIO; Value: 1.17; Range: 1.00-1.93; Status: F Lab Order: Lipase; SPEC'M 06/13/16 20:34 Test: LIPASE; Value: 95; Range: 73-393; Units: U/L; Status: F Radiology Order: CT ABD & PELVIS: IV and Oral Contrast Test: CT ABD & PELVIS: IV and Oral Contrast REASON FOR EXAMINATION: vomiting r/o sbo; ; CT of the abdomen and pelvis with contrast; Clinical statement: vomiting, rule out obstruction.; Technique: Multiple axial CT images were obtained from the base of the lungs through the floor of the; pelvis utilizing 5 mm axial slices after administration of nonionic intravenous contrast. Coronal an; d sagittal reconstructions were also obtained.; No comparison is available.; Findings:; Chest: The visualized lung bases are clear.; Abdomen: The liver, spleen, pancreas, kidneys, gallbladder, and adrenal glands are grossly unremarkab; le. There is a 5 mm simple cyst in the left lobe of the liver. The aorta is within normal limits. The; re is no evidence of abdominal lymphadenopathy or ascites. There is a large duodenal diverticulum.; Pelvis: There is an ostomy in the left lower quadrant. The distal colon appears grossly intact, with; extensive diverticulosis. However, there is severe distention of the small bowel. There is a rapid na; rrowing of the small bowel adjacent to the umbilicus, where there is soft tissue thickening suspected; to represent adhesions. Proximal to the site, there is a large amount of fluid and stool within the; small bowel. The urinary bladder is within normal limits. The other pelvic structures appear grossly; intact. There is no evidence of pelvic lymphadenopathy or ascites.; Bones: There are no suspicious osseous abnormalities seen.; Impression:; 1. High-grade small bowel obstruction as described, likely secondary to adhesions.; ER physician was notified of these findings at 10:50 PM on 06/13/2016.; ; ; Outcome: 06/14 00:05 Decision to Hospitalize by Provider. br1 01:48 Discharge Assessment: Patient awake, alert and oriented x 3. No cognitive and/or lf1 functional deficits noted. Patient verbalized understanding of disposition instructions. Patient awake and alert. Oriented to person, place and time. patient administered narcotics - no. The following High Risk Discharge criteria are identified: None. Admitted to Med/Surg accompanied by tech, via stretcher, with chart. Condition: unchanged. CT Study completed. Property :Personal belongings accompany Pt. 01:49 Patient left the ED. lf1 Signatures: Dispatcher [employer] EDMS Nalini Maurer, Reg Reg gb George, Evie Frey,RN RN lf1 Yadiel Torres MD MD br1 Maynor Healy, RN RN ml6 Lorenzo Wolf,CENTER RECEPTIONIST CENTER RECEPTIONIST mf4 Will Davies, DIANA CUSTOMER RELATIONS CONSULTANT Mynor Sands,RN RN mb9 Chart Complete MTDD
--- NOTE | 2016-06-16 02:50 | EDDOCDS ---
Physician Documentation [facility] Name: Mayte Weathers Age: 76 yrs Sex: Female : 1940 Arrival Date: 06/13/2016 Time: 18:39 Bed I8 Private MD: Meaghan Boyer T Disposition: 06/14/16 00:05 Hospitalization ordered by Evangelista Wharton for Inpatient Admission. Preliminary diagnosis is Other intestinal obstruction. - Bed requested for 4 [place]. - Status is Inpatient Admission. lf1 - Condition is Stable. - Problem is new. - Symptoms are unchanged. Historical: - Allergies: Percocet (Vomit); - Home Meds: 1. omeprazole 20 mg Oral cpDR once daily (Last dose: 06/13/2016 07:00) 2. lisinopril 10 mg Oral tab once daily (Last dose: 06/13/2016 07:00) 3. pravastatin 20 mg oral tab 1 tab once daily (Last dose: 06/13/2016 07:00) 4. lorazepam 0.5 mg Oral tab 1 tab 3 times per day (Last dose: 06/13/2016 07:00) 5. Zofran (as hydrochloride) 4 mg Oral tab 2 tabs every 8 hours (Last dose: 06/13/2016 07:00) 6. Zantac 150 mg Oral cap 1 cap 2 times per day (Last dose: 06/13/2016 07:00) 7. Compazine 10 mg Oral tab 1 tab 3 times per day (Last dose: 06/13/2016 07:00) 8. 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 No barriers to communication noted, Speaks appropriately for age. - Family history: Not pertinent. - : The pt / caregiver states he / she is not on anticoagulants. Home medication list is obtained from the patient. - Exposure Risk Screening:: None identified. Vital Signs: 06/13 18:42 BP 154 / 94 RA Sitting (auto/reg); Pulse 104; Resp 18; Temp 96.3(O); Pulse Ox 98% on jrd R/A; Weight 61.23 kg / 134.99 lbs (R); Height 4 ft. 10 in. (147.32 cm) (R); Pain 7/10; 22:37 BP 130 / 63; Pulse 100; Resp 18; Temp 97.9(O); Pulse Ox 98% on R/A; Pain 0/10; mf4 06/14 00:42 BP 100 / 67; Pulse 101; Resp 16; Temp 97.6(O); Pulse Ox 97% on R/A; Pain 0/10; lf1 01:30 BP 116 / 74; Pulse 103; Resp 17; Temp 97.4(O); Pulse Ox 96% on R/A; Pain 0/10; lf1 06/13 18:42 Body Mass Index 28.21 (61.23 kg, 147.32 cm) jrd MDM: 06/13 18:59 IV Saline Lock ordered. br1 19:00 CBC with Diff Ordered. EDMS 19:00 BMP Ordered. EDMS 19:00 Liver Profile Ordered. EDMS 19:00 Lipase Ordered. EDMS 19:23 NS 0.9% 1000 ml IV at 150 mL/hr continuous ordered. br1 19:24 CT ABD & PELVIS: IV and Oral Contrast Ordered. EDMS 19:26 Ondansetron 4 mg IVP once ordered. br1 20:26 Diatrizoate Meglumine & Sodium Liquid 10 ml PO once; mix in 290cc of water \T\ 2000 mf4 ordered. 20:26 Diatrizoate Meglumine & Sodium Liquid 10 ml PO once; mix in 290cc of water \T\ 2030 mf4 ordered. 21:43 CBC with Diff Reviewed. br1 21:43 BMP Reviewed. br1 21:43 Liver Profile Reviewed. br1 21:43 Lipase Reviewed. br1 21:44 Ondansetron 4 mg IVP once ordered. br1 22:44 Financial registration complete. zo 22:51 BED REQUEST+ADM ordered. EDMS 23:52 [facility] Payment Agreement was scanned into [employer] and attached to record. zo 06/14 00:18 Admission / Observation Status ordered. EDMS 00:19 NPO DIET ordered. EDMS 00:20 BASIC METABOLIC PROFILE Ordered. EDMS 00:20 Abdomen,Flat Plate KUB Ordered. EDMS 11:50 T-Sheet-- Draft Copy was scanned into [employer] and attached to record. 11:50 Radiology Report was scanned into [employer] and attached to record. gb Administered Medications: 06/13 20:26 Drug: Diatrizoate Meglumine & Sodium 10 ml [diatrizoate meglumine and diat.sodium 66 mf4 %-10 % oral solution (10 mL)] Route: PO; 20:45 Drug: Diatrizoate Meglumine & Sodium 10 ml [diatrizoate meglumine and diat.sodium 66 lf1 %-10 % oral solution (10 mL)] Route: PO; 20:53 Drug: NS 0.9% 1000 ml [sodium chloride 0.9 % intravenous solution] Route: IV; Rate: 150 lf1 mL/hr; Site: left antecubital; 06/14 01:50 Follow up: IV Status: Infusion continued upon admit 1 06/13 20:53 Drug: Ondansetron 4 mg [ondansetron HCl 2 mg/mL intravenous solution (2 mL)] Route: lf1 IVP; Site: left antecubital; 22:03 Drug: Ondansetron 4 mg [ondansetron HCl 2 mg/mL intravenous solution (2 mL)] Route: lf1 IVP; Site: left antecubital; 22:37 Follow up: Response: Nausea is decreased mf4 22:37 Follow up: Response: Nausea is decreased mf4 23:30 Follow up: Response: Nausea is decreased lf1 Signatures: Dispatcher [employer] EDMS Nalini Maurer, Reg Reg gb Rc Vazquez LisaRN RN lf1 Yadiel Torres MD MD br1 Maynor Healy RN RN ml6 Radha Watson RN RN sls1 Lorenzo Wolf,DIRECTOR DIETETICS DEPARTMENT DIRECTOR DIETETICS DEPARTMENT mf4 The chart was reviewed and I authenticate all verbal orders and agree with the evaluation and treatment provided.Attachments: 23:52 [place] Payment Agreement zo 06/14 11:50 T-Sheet-- Draft Copy gb Chart Complete MTDD
--- NOTE | 2016-06-16 02:50 | EDDOCDS ---
Physician Documentation [facility] Name: Mayte Weathers Age: 76 yrs Sex: Female : 1940 Arrival Date: 06/13/2016 Time: 18:39 Bed I8 Private MD: Meaghan Boyer T Disposition: 06/14/16 00:05 Hospitalization ordered by Evangelista Wharton for Inpatient Admission. Preliminary diagnosis is Other intestinal obstruction. - Bed requested for 4 [place]. - Status is Inpatient Admission. lf1 - Condition is Stable. - Problem is new. - Symptoms are unchanged. Historical: - Allergies: Percocet (Vomit); - Home Meds: 1. omeprazole 20 mg Oral cpDR once daily (Last dose: 06/13/2016 07:00) 2. lisinopril 10 mg Oral tab once daily (Last dose: 06/13/2016 07:00) 3. pravastatin 20 mg oral tab 1 tab once daily (Last dose: 06/13/2016 07:00) 4. lorazepam 0.5 mg Oral tab 1 tab 3 times per day (Last dose: 06/13/2016 07:00) 5. Zofran (as hydrochloride) 4 mg Oral tab 2 tabs every 8 hours (Last dose: 06/13/2016 07:00) 6. Zantac 150 mg Oral cap 1 cap 2 times per day (Last dose: 06/13/2016 07:00) 7. Compazine 10 mg Oral tab 1 tab 3 times per day (Last dose: 06/13/2016 07:00) 8. 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 No barriers to communication noted, Speaks appropriately for age. - Family history: Not pertinent. - : The pt / caregiver states he / she is not on anticoagulants. Home medication list is obtained from the patient. - Exposure Risk Screening:: None identified. Vital Signs: 06/13 18:42 BP 154 / 94 RA Sitting (auto/reg); Pulse 104; Resp 18; Temp 96.3(O); Pulse Ox 98% on jrd R/A; Weight 61.23 kg / 134.99 lbs (R); Height 4 ft. 10 in. (147.32 cm) (R); Pain 7/10; 22:37 BP 130 / 63; Pulse 100; Resp 18; Temp 97.9(O); Pulse Ox 98% on R/A; Pain 0/10; mf4 06/14 00:42 BP 100 / 67; Pulse 101; Resp 16; Temp 97.6(O); Pulse Ox 97% on R/A; Pain 0/10; lf1 01:30 BP 116 / 74; Pulse 103; Resp 17; Temp 97.4(O); Pulse Ox 96% on R/A; Pain 0/10; lf1 06/13 18:42 Body Mass Index 28.21 (61.23 kg, 147.32 cm) jrd MDM: 06/13 18:59 IV Saline Lock ordered. br1 19:00 CBC with Diff Ordered. EDMS 19:00 BMP Ordered. EDMS 19:00 Liver Profile Ordered. EDMS 19:00 Lipase Ordered. EDMS 19:23 NS 0.9% 1000 ml IV at 150 mL/hr continuous ordered. br1 19:24 CT ABD & PELVIS: IV and Oral Contrast Ordered. EDMS 19:26 Ondansetron 4 mg IVP once ordered. br1 20:26 Diatrizoate Meglumine & Sodium Liquid 10 ml PO once; mix in 290cc of water \T\ 2000 mf4 ordered. 20:26 Diatrizoate Meglumine & Sodium Liquid 10 ml PO once; mix in 290cc of water \T\ 2030 mf4 ordered. 21:43 CBC with Diff Reviewed. br1 21:43 BMP Reviewed. br1 21:43 Liver Profile Reviewed. br1 21:43 Lipase Reviewed. br1 21:44 Ondansetron 4 mg IVP once ordered. br1 22:44 Financial registration complete. zo 22:51 BED REQUEST+ADM ordered. EDMS 23:52 [facility] Payment Agreement was scanned into Moven and attached to record. zo 06/14 00:18 Admission / Observation Status ordered. EDMS 00:19 NPO DIET ordered. EDMS 00:20 BASIC METABOLIC PROFILE Ordered. EDMS 00:20 Abdomen,Flat Plate KUB Ordered. EDMS 11:50 T-Sheet-- Draft Copy was scanned into Moven and attached to record. 11:50 Radiology Report was scanned into Moven and attached to record. gb Administered Medications: 06/13 20:26 Drug: Diatrizoate Meglumine & Sodium 10 ml [diatrizoate meglumine and diat.sodium 66 mf4 %-10 % oral solution (10 mL)] Route: PO; 20:45 Drug: Diatrizoate Meglumine & Sodium 10 ml [diatrizoate meglumine and diat.sodium 66 lf1 %-10 % oral solution (10 mL)] Route: PO; 20:53 Drug: NS 0.9% 1000 ml [sodium chloride 0.9 % intravenous solution] Route: IV; Rate: 150 lf1 mL/hr; Site: left antecubital; 06/14 01:50 Follow up: IV Status: Infusion continued upon admit 1 06/13 20:53 Drug: Ondansetron 4 mg [ondansetron HCl 2 mg/mL intravenous solution (2 mL)] Route: lf1 IVP; Site: left antecubital; 22:03 Drug: Ondansetron 4 mg [ondansetron HCl 2 mg/mL intravenous solution (2 mL)] Route: lf1 IVP; Site: left antecubital; 22:37 Follow up: Response: Nausea is decreased mf4 22:37 Follow up: Response: Nausea is decreased mf4 23:30 Follow up: Response: Nausea is decreased lf1 Signatures: Dispatcher [employer] EDMS Nalini Maurer, Reg Reg gb Rc Vazquez LisaRN RN lf1 Yadiel Torres MD MD br1 Maynor Healy RN RN ml6 Radha Watson RN RN sls1 Lorenzo Wolf,WATER RESOURCES PROGRAM DIRECTOR WATER RESOURCES PROGRAM DIRECTOR mf4 The chart was reviewed and I authenticate all verbal orders and agree with the evaluation and treatment provided.Attachments: 23:52 [facility] Payment Agreement zo 06/14 11:50 T-Sheet-- Draft Copy gb Chart Complete MTDD
[2016-06-16 06:00] VITALS: BP 132/80
[2016-06-16] MEDS: ENOXAPARIN 40 MG/0.4 ML SYRINGE (J1650) SC SCH (09:02)
[2016-06-16] MEDS: PANTOPRAZOLE 40MG INJ (PROTONIX) (C9113) IV SCH (09:02)
[2016-06-16] MEDS: DOCUSATE SODIUM 100 MG CAP PO SCH ×2 (09:45→20:05)
[2016-06-16 10:00] VITALS: BP 125/78
[2016-06-16 14:00] VITALS: BP 111/67
[2016-06-16 18:00] VITALS: BP 120/75
[2016-06-16 22:00] VITALS: BP 129/75
[2016-06-17 02:00] VITALS: BP 124/79
[2016-06-17] MEDS: POTASSIUM CHLORIDE INJ 20 MEQ in D5W/LR 1,000 ML IV SCH (04:06)
[2016-06-17 06:00] VITALS: BP 134/81
[2016-06-17] MEDS: DOCUSATE SODIUM 100 MG CAP PO SCH (07:46)
[2016-06-17] MEDS: ENOXAPARIN 40 MG/0.4 ML SYRINGE (J1650) SC SCH (07:47)
--- NOTE | 2016-06-17 08:30 | CR ---
DATE: 06/14/2016 Mayte is admitted with small bowel obstruction. 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 She initially presented in early 2015 with small bowel obstruction, underwent debulking surgery, followed by adjuvant chemotherapy. After completion of chemotherapy in September 2015, she had early recurrence in January 2016 and was started on weekly Taxol. Her CA-125 has been slowly lowering. However, in the last few weeks, she has developed delayed nausea and vomiting following each chemotherapy treatment, decreased oral and weight loss. She received weekly Taxol last week on , had one or two good days and then by Monday and Monday again had nausea and vomiting. She was seen in the office where her abdomen was fairly tense, abdomen x-ray suggested a small bowel obstruction and in the emergency room CT abdomen and pelvis confirmed this. She is now status post nasogastric (NG) tube placement with good decompression of the air-fluid levels and dilated bowel, feeling much better with decreased pain. She is entirely nothing by mouth. Dr. Wharton is giving her an approximate 48-hour rest period on NG tube. Further decision making regarding whether she will require surgery awaits. Vital signs are stable. Labs show normal WBC count, hemoglobin, hematocrit and platelets. She is not neutropenic. I interviewed Mayte buenrostro in her room surrounded by family. She is smiling, NG tube in place, much more comfortable then she was in the office yesterday. For the time being treatment will be with held, surgical management taking priority. IMPRESSION: Recurrent primary peritoneal/ovarian carcinoma on second line palliative treatment now with bowel obstruction thought secondary to adhesions in the setting of good response to chemotherapy. PLAN: Management per Dr. Wharton for the present. I will hold further chemotherapy treatment. Mayte is very agreeable to this plan. She is not expected to become neutropenic based on a low weekly dose of chemotherapy she has been receiving. I will follow intermittently during this hospitalization. MTDD
[2016-06-17] MEDS ORDERED: PANTOPRAZOLE 40MG TAB (PROTONIX) PO SCH (09:00)
[2016-06-17 10:00] VITALS: BP 113/75
[2016-06-17 14:00] VITALS: BP 110/70
--- NOTE | 2016-06-17 17:17 | IPN ---
DATE: 06/17/2016 Mayte is up out of bed. Nasogastric (NG) tube is been discontinued. She is now passing gas and stool, eating soft solids. She may go home today or tomorrow. She is very pleased with her progress. Denies pain. For the present, will hold further treatment. She is scheduled for restaging CT scans in early June, and I will see her in the office after that. I gave instructions to call with any new issues regarding her nausea, vomiting, or abdominal discomfort. Surgical management greatly appreciated.
== END 2016-06-17 18:42 | disposition home or self-care (01) | DRG 389 ==
LOC: M ED 18:39 → M ED INP 06-14 00:06 → M MSPAV 06-14 01:41
PROVIDERS: ADMIT Surgery; ATTEND Surgery
DX: K56.5 Intestinal adhesions [bands] with obstruction (postinfection) (principal); C56.9 Malignant neoplasm of unspecified ovary; Z88.5 Allergy status to narcotic agent; Z79.899 Other long term (current) drug therapy; Z93.3 Colostomy status; K21.9 Gastro-esophageal reflux disease without esophagitis; I10 Essential (primary) hypertension; Z96.651 Presence of right artificial knee joint; Z96.652 Presence of left artificial knee joint; E78.00 Pure hypercholesterolemia, unspecified

== ENCOUNTER → 2016-06-13 | Outpatient (REF) | payer MEDICARE ==
[~2016-06-13] MED LIST changes: +CALC1TAB30 PO; +LISI10TA4 PO; +LORA-376 PO; +PROC10TA PO; +ZANT1TAB PO; +ZOFR20TA PO
== END ==
LOC: M LAB REF 16:34
PROVIDERS: ATTEND Internal Medicine Medical Oncology
DX: C56.9 Malignant neoplasm of unspecified ovary (principal)

== ENCOUNTER → 2016-06-13 | Outpatient (CLI) | payer MEDICARE ==
--- NOTE | 2016-06-13 16:28 | REP ---
Clinical: Rule out obstruction. Technique: Upright view of the chest with supine and upright views of the abdomen and pelvis. Findings: Frontal upright view of the chest demonstrates [id number] in the SVC. Mediastinum and cardiac silhouette are normal. No free air below the diaphragm to suspect pneumoperitoneum. Supine and upright views of the abdomen and pelvis demonstrate few air fluid levels which are nonspecific. Differential diagnosis would include enteritis and early small bowel obstruction. Correlation is recommended. Surgical clips and ostomy identified. Skeletal structures demonstrate age-related changes. Impression: Few air fluid levels. Differential diagnosis includes enteritis and early small bowel obstruction. Signed by Charles Lopez MD 06/13/2016 04:19 P
== END ==
LOC: M RAD 14:58
PROVIDERS: ATTEND Internal Medicine Medical Oncology
DX: R10.9 Unspecified abdominal pain (principal)

== ENCOUNTER 2016-06-25 11:36 | Inpatient (IN) | payer MEDICARE ==
[~2016-06-25] VITALS: Ht 147.3 cm; Wt 59.6 kg
[~2016-06-25 11:36] MED LIST changes: +CALC1TAB30 PO; +LISI10TA4 PO; +LORA-376 PO; +PROC10TA PO; +ZANT1TAB PO; +ZOFR20TA PO
[2016-06-25] MEDS ORDERED: NS 500 ML IV ONE (12:15)
[2016-06-25] MEDS ORDERED: ONDANSETRON 4MG/2ML VIAL (J2405) IV ONE ×2 (12:15→15:30)
[2016-06-25 12:47] LABS: BASO % 0.3 % (0.0-1.0); EOS % 0.2 % (0.0-3.0); LARGE UNSTAINED CELL # 0.1 K/mm3 (0.0-0.4); LARGE UNSTAINED CELL % 0.9 % (0.0-4.0); LYMPH # 0.6 K/mm3 (1.5-4.5); LYMPH % 6.2 % (24.0-44.0); MEAN CORPUSCULAR HEMOGLOBIN 29.7 pg (27.0-33.0); MEAN CORPUSCULAR VOLUME 89.8 fl (80.0-96.0); MONO # 0.3 K/mm3 (0.0-0.8); MONO % 3.4 % (0.0-5.0); NEUTROPHILS # 8.4 K/mm3 (1.8-7.7); PLATELET COUNT, AUTOMATED 276 k/mm3 (150-450); RED CELL DISTRIBUTION WIDTH 17.3 % (11.5-14.5); WHITE BLOOD COUNT 9.4 K/mm3 (4.0-10.0)
[2016-06-25 13:09] LABS: ALBUMIN 3.2 GM/DL (3.2-5.2); ALBUMIN/GLOBULIN RATIO 0.86 (1.00-1.93); ALKALINE PHOSPHATASE 109 U/L (45-117); ALT/SGPT 11 U/L (12-78); ANION GAP 11 MEQ/L (8-16); AST/SGOT 14 U/L (15-37); BILIRUBIN,DIRECT < 0.1 MG/DL (0.0-0.2); BILIRUBIN,TOTAL 0.3 MG/DL (0.2-1.0); BLOOD UREA NITROGEN 11 MG/DL (7-18); CALCIUM LEVEL 8.9 MG/DL (8.8-10.2); CARBON DIOXIDE LEVEL 27 MEQ/L (21-32); CHLORIDE LEVEL 105 MEQ/L (98-107); CREATININE FOR GFR 0.64 MG/DL (0.55-1.02); GLOMERULAR FILTRATION RATE > 60.0 (>39); GLUCOSE, FASTING 119 MG/DL (83-110); POTASSIUM SERUM 3.9 MEQ/L (3.5-5.1); SODIUM LEVEL 143 MEQ/L (136-145); TOTAL PROTEIN 6.9 GM/DL (6.4-8.2)
[2016-06-25] MEDS ORDERED: GASTROGRAFIN SOLUTION 30ML (Q9963) PO ONE (13:30)
[2016-06-25] MEDS ORDERED: ISOVUE-370 76% 100ML VIAL (Q9967) As Ordered ONE (15:01)
[2016-06-25] MEDS ORDERED: NS 1,000 ML IV SCH (16:00)
[2016-06-25 16:12] LABS: INR 1.02
[2016-06-25] MEDS ORDERED: LIDO1CRE14 TOP (16:37)
[2016-06-25] MEDS ORDERED: CALCTAB68 PO (16:37)
[2016-06-25] MEDS ORDERED: ACETAMINOPHEN TAB 650MG DOSE (2X325MG) PO PRN (17:45)
[2016-06-25] MEDS ORDERED: NORCO, ANEXSIA 5/325MG TABLET (HYDROcodone/ACETAMINOPHEN) PO PRN ×2 (17:45)
[2016-06-25] MEDS ORDERED: PROMETHAZINE INJ 25 MG/ML VIAL (J2550) IV PRN (17:45)
[2016-06-25] MEDS ORDERED: MORPHINE 4 MG/ML 1ML SYRINGE IV PRN (17:45)
[2016-06-25] MEDS ORDERED: ONDANSETRON 4MG/2ML VIAL (J2405) IV PRN (17:45)
--- NOTE | 2016-06-25 17:46 | CR.PDOC ---
[facility] Consultation Consultation CONSULTING DOCTOR: Dr. Dill REASON FOR CONSULT: Pulmonary embolism, medical management HISTORY OF PRESENT ILLNESS: Patient is a 76-year-old female who presented to the emergency department with chief complaint of feeling sick to her stomach, pain in her stomach. Patient had a recent hospitalization from 06/14/16-06/17/16 for small bowel obstruction. She says that she developed a gradual onset of pain over the last 3-4 days (she just did not feel good). She presented with nausea and vomiting, denies any hematemesis. She is complaining of pain across the top of her abdomen. She currently rates her pain 2-3 out of 10 and 7-8 out of 10 at worst. Pain is described as a really bad pain. She does continue to report output from her ostomy, last output was this morning. ALLERGIES: Oxycodone (vomiting), Sudafed (unknown reaction) CURRENT MEDICATIONS: Calcium with vitamin D 1 tablet by mouth twice a day Turmeric 500 mg by mouth twice a day Lidocaine one dose topically as directed and Lisinopril 10 mg by mouth daily Omeprazole 20 mg by mouth daily Zofran 4 mg by mouth every 4 hours when necessary for nausea Pravastatin 20 mg by mouth daily at bedtime Prochlorperazine 10 mg by mouth every 6 hours when necessary for nausea PAST MEDICAL HISTORY: Ovarian cancer (currently in a treatment, no treatment and last 2 weeks), small bowel obstruction, history of diabetes mellitus, dyslipidemia, hypertension PAST SURGICAL HISTORY: 2 knee replacements, cataracts, hysterectomy, colostomy SOCIAL HISTORY: Patient lives at home, independently with her . She denies any tobacco, alcohol or recreational drug use. 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 Eyes: denies blurry vision, double vision. Ears: denies hearing loss, tinnitus, ear pain. Nose: denies sinus pain, pressure, rhinorrhea, postnasal drip. Throat: denies sore throat, cough, difficulty swallowing Cardiovascular: denies chest discomfort/pain, palpitations Respiratory: denies shortness of breath, difficulty breathing Gastrointestinal: Positive for abdominal pain, nausea, vomiting as described in HPI : denies dysuria, hematuria Musculoskeletal: denies muscle / joint stiffness, pain, swelling Neurological: Positive for occasional tingling in feet (secondary to chemotherapy) Lymphatics: denies palpable lymph nodes or swollen glands Integumentary: denies any cuts, rashes, bruises Endocrine: denies polyuria, polydipsia. PHYSICAL EXAMINATION: Vitals: Temperature 97.3, pulse 94, respiratory rate 16, blood pressure 118/74, pulse ox 97% on room air General: Patient awake, alert and oriented, verbal and able to answer questions appropriately. She does not appear to be in any acute distress HEENT: Head: normocephalic, atraumatic.. Eyes: pupils equally reactive to light , conjunctiva are pink, sclera are nonicteric. Throat: buccal mucosa is pink and moist with no lesions in the oropharynx Respiratory: clear to auscultation bilaterally with no wheezes, rales, or rhonchi. Cardiovascular: Tachycardic, regular rhythm, no murmurs, rubs, clicks or gallops Abdomen: soft, nontender, nondistended, no hepatosplenomegaly appreciated. Bowel sounds present. Extremities: 5/5 strength in upper and lower extremities bilaterally, no swelling in either lower extremity bilaterally Neurological: sensation intact and symmetrical in upper and lower extremities bilaterally Lymphatics: no palpable lymph nodes, swollen glands Integumentary: skin free from rashes, lesions, abrasions Vascular: pulses palpable and symmetrical in upper and lower extremities bilaterally LABORATORY DATA: CBC: White blood cells 9.4, hemoglobin and hematocrit 12.2/36.9, platelets 276 Chemistry: Sodium 143, potassium 3.9, chloride 105, carbon dioxide 27, BUN 11, creatinine 0.64, glucose 119, calcium 8.9 Liver profile: AST 14, ALT 11, alkaline phosphatase 109, total protein 6.9, albumin 3.2, total bilirubin 0.3 Cardiac marker panel: Total creatinine kinase 20, CK-MB 1.0, CK-MB relative index 5.0, troponin I <0.02 Lipase 89 Coagulation: PT 13.5, INR 1.02, APTT 25.7 ELECTROCARDIOGRAM: Sinus tachycardia at rate of 109 bpm RADIOLOGY: CT of abdomen and pelvis with IV and oral contrast: High-grade small bowel obstruction similar to CT of 06/13/16. Ulnar embolism seen in left lower lung pulmonary artery branches Chest x-ray: Ordered ASSESSMENT: Patient is a 76-year-old female with small bowel obstruction, pulmonary embolism seen for hospitalist consult PLAN: #1: Small bowel obstruction: Plan as per Dr. Dill from surgery, patient will be left nothing by mouth #2: Pulmonary embolism: Start Lovenox 60 mg subcutaneously twice a day. Follow- up results from chest x-ray when available #3: Hypertension: Hold antihypertensives secondary to small bowel obstruction #4: Dyslipidemia: Hold pravastatin secondary to small bowel obstruction I have both independently examined this patient as well as reviewed the dictated note. I have discussed in detail with the resident the findings and plan of treatment as documented in the residents note. I will continue to follow the patient and offer further guidance to the patients care as necessary during this hospital stay. Allergies Coded Allergies: Pseudoephedrine (Unverified Allergy, Intermediate, RASH BLISTERS, 04/19/15 ) Oxycodone (Unverified Adverse Reaction, Mild, Nausea, Vomiting, 06/25/16) Home Medications Scheduled (Udkhhpsok-Hkppqihqtm-Tkus 2.5-2.5 %) 1 Cre Cre 1 DOSE TOP ASDIRECTED (Reported ) Calcium/Vitamin D (Calcium 600 + D 600-400 mg-Unit) 1 Tab Tab 1 TAB PO BID ( Reported) Curcuma Longa (Turmeric) Extra (Turmeric Curcumin) 500 Mg Cap 500 MG PO BID ( Reported) Lisinopril (Lisinopril) 10 Mg Tab 10 MG PO DAILY (Reported) Omeprazole (Omeprazole) 20 Mg Tab 20 MG PO DAILY (Reported) Pravastatin Sodium (Pravastatin Sodium) 20 Mg Tab 20 MG PO QHS (Reported) Scheduled PRN Ondansetron HCl (Zofran) 4 Mg Tab 4 MG PO Q4H PRN PRN NAUSEA (Reported) Prochlorperazine Maleate (Prochlorperazine Maleate) 10 Mg Tab 10 MG PO Q6H PRN PRN NAUSEA (Reported) MAGED FLETCHER DO Jun 25, 2016 17:46 RHEA GONZALEZ MD Jun 26, 2016 18:54
[2016-06-25 19:00] VITALS: BP 114/75
[2016-06-25] MEDS: SENOKOT S TAB PO SCH (19:57)
[2016-06-25] MEDS: LR 1,000 ML IV SCH (19:58)
[2016-06-25] MEDS: ENOXAPARIN 60 MG/0.6 ML SYR (J1650) SC SCH (19:58)
[2016-06-25 22:00] VITALS: BP 100/66
[2016-06-26] MEDS: LR 1,000 ML IV SCH ×4 (02:46→20:07)
[2016-06-26 06:00] VITALS: BP 118/76
[2016-06-26 06:07] LABS: BASO % 0.4 % (0.0-1.0); EOS % 0.8 % (0.0-3.0); LARGE UNSTAINED CELL # 0.1 K/mm3 (0.0-0.4); LARGE UNSTAINED CELL % 2.1 % (0.0-4.0); LYMPH # 1.2 K/mm3 (1.5-4.5); LYMPH % 21.6 % (24.0-44.0); MEAN CORPUSCULAR HEMOGLOBIN 30.4 pg (27.0-33.0); MEAN CORPUSCULAR VOLUME 89.2 fl (80.0-96.0); MONO # 0.3 K/mm3 (0.0-0.8); MONO % 5.6 % (0.0-5.0); NEUTROPHILS % 69.5 % (36.0-66.0); PLATELET COUNT, AUTOMATED 246 k/mm3 (150-450); RED CELL DISTRIBUTION WIDTH 17.3 % (11.5-14.5); WHITE BLOOD COUNT 5.7 K/mm3 (4.0-10.0)
[2016-06-26 06:23] LABS: ANION GAP 10 MEQ/L (8-16); BLOOD UREA NITROGEN 12 MG/DL (7-18); CALCIUM LEVEL 8.2 MG/DL (8.8-10.2); CARBON DIOXIDE LEVEL 26 MEQ/L (21-32); CHLORIDE LEVEL 107 MEQ/L (98-107); CREATININE FOR GFR 0.63 MG/DL (0.55-1.02); GLOMERULAR FILTRATION RATE > 60.0 (>39); GLUCOSE, FASTING 102 MG/DL (83-110); POTASSIUM SERUM 3.6 MEQ/L (3.5-5.1); SODIUM LEVEL 143 MEQ/L (136-145)
--- NOTE | 2016-06-26 06:55 | REP ---
CT ABDOMEN AND PELVIS WITH IV CONTRAST: TECHNIQUE: Axial contrast enhanced images from the lung bases to the pubic symphysis using 100 mL Isovue 370 intravenous contrast material with multiplanar reformations. In the visualized lung bases, there are chronic fibrotic changes. There are filling defects in the pulmonary artery branches of the left lower lobe medially. This is compatible with pulmonary emboli. There is a small to moderate size hiatal hernia. Liver demonstrates a cyst in the left lobe unchanged. A gallstones is seen in the gallbladder measuring 1.3 cm in diameter. The spleen, adrenals, pancreas and kidneys are unremarkable. There is a small right adrenal nodule inferiorly compatible with an adenoma. Atherosclerotic calcifications are seen of the abdominal aorta without aneurysm. There is no adenopathy or free air. There is mild free fluid in the anterior pelvis. There is postsurgical change in the anterior abdominal wall with scattered areas of thickening of the abdominal wall. Once again, there is evidence of high grade small bowel obstruction just below the level of the umbilicus. Other dilated small bowel loops are seen in the left pelvis inferior to that. Sigmoid diverticula are present. Urinary bladder is mildly distended and not optimally distended. No definite pelvic mass is seen. There is an ostomy in the left lower quadrant. IMPRESSION: There is evidence for pulmonary emboli in the visualized pulmonary artery branches of the left lower lobe. High grade small bowel obstruction appears similar to the prior CT of 06/13/2016. Abrupt zone of transition is seen just below the level of the umbilicus in the midline. Severely dilated small bowel loop is seen at that location containing ingested material and fluid. Signed by Chucho Farris MD 06/26/2016 01:52 P
--- NOTE | 2016-06-26 07:47 | REP ---
PORTABLE CHEST: AP portable view of the chest is performed. Comparison 06/13/2016. There is poor ventilation. There are crowded lung markings and mild bibasilar atelectatic change without consolidating infiltrate. The cardiomediastinal silhouette is unchanged. Right central venous catheter is seen with the tip in the superior vena cava. Nasogastric tube is seen with side port in the distal esophagus. The distal tip is just beyond the gastroesophageal junction. IMPRESSION: Mild bibasilar atelectatic change without consolidating infiltrate. Nasogastric tube side port is in the distal esophagus. It appears to be approximately 4 cm proximal to the gastroesophageal junction and should be advanced. Signed by Chucho Farris MD 06/26/2016 01:55 P
[2016-06-26] MEDS: PANTOPRAZOLE 40MG INJ (PROTONIX) (C9113) IV SCH (08:33)
[2016-06-26] MEDS: ENOXAPARIN 60 MG/0.6 ML SYR (J1650) SC SCH ×2 (08:33→20:07)
[2016-06-26] MEDS: SENOKOT S TAB PO SCH ×2 (08:33→20:06)
[2016-06-26 14:00] VITALS: BP 124/79
--- NOTE | 2016-06-26 15:33 | IPN ---
DATE: 06/26/2016 SUBJECTIVE: Patient is seen and examined in the room today. Patient stated her abdominal pain shows significant improvement, at this time patient does not have any pain. Patient continues to have a nasogastric (NG) tube. Patient does not require any external oxygen support. Patient does not have chest pain with respirations. No overnight events reported. OBJECTIVE: VITAL SIGNS: Temperature 97.8, pulse 93, respiration rate 16, blood pressure 180/76, pulse oximetry 95% in room air. GENERAL: No sign of acute distress, alert and oriented times three. HEENT: NG tube in place. Normocephalic, atraumatic. Extraocular motors grossly intact. CARDIOVASCULAR: Positive S1, S2, regular rate. LUNGS: Clear to auscultation bilaterally. No wheezes or rhonchi. ABDOMEN: Nontender, nondistended, bowel sounds present. EXTREMITIES: No edema, no sign of cyanosis. LABORATORY DATA: WBC 5.7, hemoglobin 11, hematocrit 32.4, platelet count 246. Sodium 143, potassium 3.6, chloride 107, carbon dioxide 26, BUN 12, creatinine 0.63, GFR greater than 60, fasting glucose 102, calcium 8.2. ASSESSMENT AND PLAN: 1. Small bowel obstruction. Primary team is from general surgery, Dr. Dill. Patient has been nothing by mouth, nasogastric (NG) tube in place, and patient is on intravenous (IV) fluid support. 2. Pulmonary embolism. Patient has never had a clot in the lung in the past, does not have any pleuritic chest pain. Patient is on Lovenox 60 mg subcutaneous twice a day. Upon discharge, patient may need to start a new clotting agent. 3. Hypertension. Patient's hypertension medication is on hold. At this moment blood pressure is in satisfactory range. 4. History of stage III ovarian cancer. Patient's oncologist is Dr. Gemma Daley. Patient is in the middle of ovarian cancer chemotherapy. Patient had a hysterectomy and oophorectomy in [place]. Patient's scheduled CT scan of the whole body is tomorrow. If patient is still in the hospital, I will contact Dr. Daley with regard to imaging arrangement. 5. Dyslipidemia. Patient was on pravastatin. Currently nothing by mouth and pravastatin on hold. 6. Deep venous thrombosis (DVT) prophylaxis per the primary team.
[2016-06-26] MEDS: MOM 30ML SUSPENSION UDC PO SCH (20:06)
--- NOTE | 2016-06-26 20:10 | ECGEPIP ---
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
[2016-06-26 22:00] VITALS: BP 133/75
[2016-06-27 06:00] VITALS: BP 140/70
[2016-06-27 06:02] LABS: BASO % 0.5 % (0.0-1.0); EOS % 1.1 % (0.0-3.0); LARGE UNSTAINED CELL # 0.1 K/mm3 (0.0-0.4); LARGE UNSTAINED CELL % 2.5 % (0.0-4.0); MEAN CORPUSCULAR HEMOGLOBIN 29.4 pg (27.0-33.0); MEAN CORPUSCULAR HGB CONC 32.6 g/dl (32.0-36.5); MEAN CORPUSCULAR VOLUME 90.2 fl (80.0-96.0); MONO # 0.3 K/mm3 (0.0-0.8); MONO % 6.1 % (0.0-5.0); NEUTROPHILS # 3.1 K/mm3 (1.8-7.7); NEUTROPHILS % 68.8 % (36.0-66.0); PLATELET COUNT, AUTOMATED 224 k/mm3 (150-450); RED CELL DISTRIBUTION WIDTH 17.1 % (11.5-14.5); WHITE BLOOD COUNT 4.6 K/mm3 (4.0-10.0)
[2016-06-27 06:22] LABS: ANION GAP 8 MEQ/L (8-16); BLOOD UREA NITROGEN 8 MG/DL (7-18); CALCIUM LEVEL 7.5 MG/DL (8.8-10.2); CARBON DIOXIDE LEVEL 27 MEQ/L (21-32); CHLORIDE LEVEL 106 MEQ/L (98-107); CREATININE FOR GFR 0.44 MG/DL (0.55-1.02); GLOMERULAR FILTRATION RATE > 60.0 (>39); GLUCOSE, FASTING 84 MG/DL (83-110); POTASSIUM SERUM 3.4 MEQ/L (3.5-5.1); SODIUM LEVEL 141 MEQ/L (136-145)
[2016-06-27] MEDS: MOM 30ML SUSPENSION UDC PO SCH ×2 (08:49→20:05)
[2016-06-27] MEDS: ENOXAPARIN 60 MG/0.6 ML SYR (J1650) SC SCH ×2 (08:49→20:05)
[2016-06-27] MEDS: KCL 10MEQ IN 100ML SWI (KRUN) 10 MEQ in APPROPRIATE DILUENT 1 EA IV SCH ×4 (08:49→11:08)
[2016-06-27] MEDS: LR 1,000 ML IV SCH ×2 (08:50→17:15)
[2016-06-27] MEDS: SENOKOT S TAB PO SCH ×2 (08:50→20:05)
[2016-06-27] MEDS: PANTOPRAZOLE 40MG INJ (PROTONIX) (C9113) IV SCH (08:50)
--- NOTE | 2016-06-27 09:00 | REP ---
KUB: Single view. HISTORY: Followup small bowel obstruction. Comparison study CT study of the abdomen from June 25, 2016 and KUB from June 14, 2016. FINDINGS: Nasogastric tube is seen in the body of the stomach. There are scattered surgical clips in the abdomen and pelvis. There is an enterostomy ring in the left lower quadrant. There is some residual oral CT contrast in the colon. The colon is not dilated. No small bowel dilation is appreciated on today's KUB. Bowel gas pattern is much improved from its appearance on the CT study June 25, 2016. IMPRESSION: Bowel gas pattern is improved. NG tube in place. Signed by Arun Rios MD 06/27/2016 02:26 P
--- NOTE | 2016-06-27 12:04 | REP ---
CT STUDY OF THE ABDOMEN AND PELVIS WITH IV CONTRAST: HISTORY: Followup small bowel obstruction. Comparison CT study is from June 25, 2016. CT contrast dose: 75 mL of Isovue [address] FINDINGS: There is a small sliding hiatal hernia. A nasogastric tube enters the stomach and terminates in the body of the stomach. Gallstones are visible within the gallbladder as before. No adrenal lesion is seen. There is a 1 cm cyst in the left lobe of the liver unchanged. No other hepatic or splenic abnormality is seen. The kidneys enhance symmetrically and are morphologically intact. Bowel gas pattern is much improved. There are a few air and fluid filled borderline to mildly dilated caliber small bowel loops in the right and left mid abdomen. Left lower quadrant colostomy is seen. There is infiltrative process involving the anterior abdominal wall periumbilical region unchanged. Multiple peritoneal implants are noted in the upper abdomen and in front of the left lobe of the liver. Mesenteric nodular implants are suspected in the right lower quadrant as well. IMPRESSION: Small bowel obstruction pattern is much improved. Multiple peritoneal an anterior abdominal wall neoplastic implants are suspected. Left lower quadrant enterostomy. Signed by Arun Rios MD 06/27/2016 02:29 P
[2016-06-27 14:00] VITALS: BP 138/80
--- NOTE | 2016-06-27 14:43 | REP ---
CT study of the chest with IV contrast: History: Restaging. The patient is status post colorectal and ovarian carcinoma. Question metastatic disease in the chest. Comparison chest CT study is from December 08, 2015. CT contrast dose: 75 ml of Isovue 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 There is a tiny amount of bilateral pleural fluid. Some subsegmental dependent atelectatic changes are seen in the bases bilaterally. There is a small quantity of fluid tracking in the major fissure on the right. No pericardial effusion is seen. No pulmonary mass or nodule is appreciated. No hilar or mediastinal mass or adenopathy is observed. No axillary mass or adenopathy is seen. Bone window settings show no bony destructive lesion. Impression: Tiny sliver of pleural fluid bilaterally as a new finding with mild bibasilar subsegmental discoid atelectasis. NG tube and right-sided Greepr-B-Eckc catheter are noted. Otherwise negative CT study of the chest. Signed by Arun Rios MD 06/27/2016 02:35 P
--- NOTE | 2016-06-27 18:22 | IPN ---
DATE: 06/27/2016 SUBJECTIVE: The patient is seen and examined in the room today. The patient stated her abdominal pain has resolved. The patient does not have any difficulty breathing. The patient has no pain during respiration. The patient has been seen by Dr. Gemma Daley for her stage III ovarian cancer. The patient is supposed to have a scheduled imaging study done today per Dr. Daley' recommendation. OBJECTIVE: VITAL SIGNS: Temperature is 97.5, pulse is 84, respirations 18, blood pressure is 140/70. Pulse oximetry is 96% on room air. GENERAL: No sign of acute distress. Alert and oriented times three. HEENT: Normocephalic, atraumatic. Extraocular motor grossly intact. Nasogastric (NG) tube in place. CARDIOVASCULAR: Positive S1, S2. Regular rate. LUNGS: Clear to auscultation bilaterally. No wheezes or rhonchi. ABDOMEN: Soft, nontender, nondistended. Bowel sounds present. Colostomy bag in place. EXTREMITIES: No edema. No sign of cyanosis. LABORATORY DATA: WBC 4.6, hemoglobin 10.3, hematocrit 31.6, platelet count 224. Sodium 141, potassium 3.4, chloride 106, carbon dioxide 27, BUN 8, creatinine 0.44, GFR greater than 60, fasting glucose of 84. Calcium is 7.5. ASSESSMENT AND PLAN: 1. Small bowel obstruction. Will defer management to the primary surgical team. The patient has an nasogastric tube in place. The patient is nothing by mouth. The patient is on intravenous (IV) support. 2. Pulmonary embolism. Detected by the CT imaging study. The patient is currently on Lovenox 60 mg subcutaneous twice a day. The patient may benefit from switching to the new clotting agents when the patient is ready for discharge. Currently the patient maintains satisfactory oxygen saturation on room air. The patient denies any respiratory pleuritic pains. Vital signs within satisfactory range. 3. Hypertension. Blood pressure is (please clarify) is on hold. The patient is not hypertensive. 4. History of stage III ovarian cancer. The patient seen by Dr. Daley. I discussed the patient's situation with Dr. Daley. She will recommend obtaining a CT of chest for restaging purpose. 5. Dyslipidemia, on pravastatin. 6. Deep venous thrombosis (DVT) prophylaxis. The patient currently has a pulmonary embolism (PE), on Lovenox.
[2016-06-27 22:00] VITALS: BP 124/71
[2016-06-28] MEDS: LR 1,000 ML IV SCH ×3 (00:13→17:01)
[2016-06-28 06:00] VITALS: BP 134/74
[2016-06-28 06:20] LABS: BASO % 0.2 % (0.0-1.0); EOS # 0.1 K/mm3 (0.0-0.50); EOS % 1.2 % (0.0-3.0); LARGE UNSTAINED CELL # 0.1 K/mm3 (0.0-0.4); LYMPH # 1.1 K/mm3 (1.5-4.5); LYMPH % 21.1 % (24.0-44.0); MEAN CORPUSCULAR HEMOGLOBIN 29.6 pg (27.0-33.0); MEAN CORPUSCULAR HGB CONC 32.4 g/dl (32.0-36.5); MEAN CORPUSCULAR VOLUME 91.1 fl (80.0-96.0); MONO # 0.3 K/mm3 (0.0-0.8); MONO % 5.5 % (0.0-5.0); NEUTROPHILS # 3.6 K/mm3 (1.8-7.7); NEUTROPHILS % 69.9 % (36.0-66.0); PLATELET COUNT, AUTOMATED 227 k/mm3 (150-450); RED CELL DISTRIBUTION WIDTH 16.9 % (11.5-14.5); WHITE BLOOD COUNT 5.1 K/mm3 (4.0-10.0)
[2016-06-28 06:27] LABS: ANION GAP 10 MEQ/L (8-16); BLOOD UREA NITROGEN 5 MG/DL (7-18); CALCIUM LEVEL 7.7 MG/DL (8.8-10.2); CARBON DIOXIDE LEVEL 26 MEQ/L (21-32); CHLORIDE LEVEL 105 MEQ/L (98-107); CREATININE FOR GFR 0.44 MG/DL (0.55-1.02); GLOMERULAR FILTRATION RATE > 60.0 (>39); GLUCOSE, FASTING 82 MG/DL (83-110); POTASSIUM SERUM 3.6 MEQ/L (3.5-5.1); SODIUM LEVEL 141 MEQ/L (136-145)
[2016-06-28] MEDS: ENOXAPARIN 60 MG/0.6 ML SYR (J1650) SC SCH (08:51)
[2016-06-28] MEDS: PANTOPRAZOLE 40MG INJ (PROTONIX) (C9113) IV SCH (08:51)
[2016-06-28] MEDS: MOM 30ML SUSPENSION UDC PO SCH ×2 (08:52→21:33)
[2016-06-28] MEDS: SENOKOT S TAB PO SCH ×2 (08:52→21:32)
[2016-06-28 14:00] VITALS: BP 140/78
--- NOTE | 2016-06-28 18:45 | IPN ---
DATE: 06/28/2016 Patient seen and examined at the bed side. Chart has been reviewed. Patient is passing gas. No nausea or vomiting. Nasogastric tube still in place. INS AND OUTS: Gastric output of 850 last evening and 200 this morning. Urine output of 1150. No complaints of abdominal pain, nausea or vomiting overnight. No shortness of breath. No chest pain or pressure. Afebrile. No chills. Temperature 98, pulse 85, respiratory rate 18, blood pressure 134/74, 95% on room air. INPUT AND OUTPUT: Input 60, output 2250, negative 2190. Gastric output 850, stool of 250 urine total output of 1150. GENERAL: Awake, alert, and oriented to person, place and time. Answers questions appropriately. No acute respiratory distress or use of respiratory accessory muscles. Speaks in full sentences. Nasogastric tube is noted. LUNGS: Are clear to auscultation. No wheezing, rales or rhonchi. HEART: S1, S2, sinus rhythm. ABDOMEN: Soft, non-tender, non-distended. Diminished sluggish bowel sounds. Colostomy bag in place. EXTREMITIES: No clubbing, cyanosis or pitting edema. LABORATORY DATA: White count 5, hemoglobin 10, hematocrit 32, platelet count 227 , sodium 141, potassium 3.6, chloride 105, bicarbonate 26, BUN 5, creatinine 0.4 for a glucose of 82. ASSESSMENT AND PLAN: This is a 76-year-old female history of ovarian cancer currently on treatment. No treatment for the past two weeks. Small bowel obstruction, type 2 diabetes, dyslipidemia and hypertension presents with complaints of nausea, vomiting, abdominal pain was recently hospitalized 06/14 to 06/17 for a small bowel obstruction with three to four day worsening pain, found to have recurrent bowel obstruction. She had output from her ostomy. Admitted under surgical services. She was found to have pulmonary embolism, currently on Lovenox. CURRENT ISSUES: 1. Small bowel obstruction. Defer management to primary surgical team. Dr. Dill. Nasogastric tube. Nothing by mouth and IV support. 2. Pulmonary embolism (PE) detected on CT, currently Lovenox subcutaneous twice a day. Currently stable on room air. Denies any pleuritic pains. 3. History of ovarian cancer Stage III. Seen by Dr. Daley. Outpatient follow up and repeat PET scan as outpatient. 4. Dyslipidemia. Pravastatin. 5. Deep vein thrombosis prophylaxis. Currently has treatment for pulmonary embolism (PE) on Lovenox. MTDD
--- NOTE | 2016-06-28 18:55 | CR ---
DATE: 06/27/2016 Dr. Del Valle of medical consult service asked me to provide medical oncology management recommendations for the patient under Dr. Dill on surgical service. I have also spoken about the following with Dr. Dennys buenrostro. 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 Chucho Ulloa followed by surgical debulking with Dr. Charles Hernandez. Mayte had six cycles of carboplatin/Taxol completed in October 2015. Unfortunately in late January she developed a recurrence and was started on weekly Taxol as palliative treatment. Mayte has had difficulty with her weekly Taxol treatment, developing nausea early on followed by nausea and vomiting. She would be able to eat, pass gas and stool, but gradually began to lose weight. On her most recent treatment, despite improving tumor markers, she developed early-onset nausea and vomiting. Was found to have small-bowel obstruction and admitted to the hospital. She was decompressed with nasogastric tube, able to leave the hospital, however, now less than 2 weeks later she is presenting again with recurrent small-bowel obstruction. In the interval she did not resume chemotherapy. At the bedside, Mayte has a nasogastric (NG) tube. Her is with her and her son. She is feeling better in terms of her abdominal pain. CT abdomen and pelvis today shows a much improvement of the small-bowel obstruction, which was high grade on presentation June 25. Today, CT with contrast does demonstrate a few remaining air-fluid levels with borderline to mildly dilated small-bowel loops in the right and left mid abdomen. Colostomy is in place in the left lower quadrant. An infiltrative process involving the anterior abdominal wall, periumbilical region, is unchanged versus last CT scan June 25. There are multiple peritoneal implants in the upper abdomen and in front of the left lobe of the liver as well as mesenteric nodular implants in the right lower quadrant. 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 IMPRESSION: 1. Recurrent small-bowel obstruction (SBO) in a patient on second-line palliative treatment for [place]-resistant primary peritoneal/ovarian carcinoma with modest response to chemotherapy. Persistence of multifocal periumbilical, peritoneal, and mesenteric implants strongly suggest risk for future obstruction and modest response to treatment. Chitra I spoke with Mayte about next steps. I am recommending discontinuing active chemotherapy treatment, as she tolerates this poorly, and it is unfortunately with each subsequent treatment less likely to be effective. I also spoke with her about a possible palliative procedure, perhaps a more proximal ostomy, depending on the surgeons opinions, to relieve her obstruction symptoms. Finally, I raised the need to consider hospice care given a short life expectancy with her cancer off active chemotherapy treatment. Mayte took all this in with equanimity. Her was quite upset. Her son present asked several questions. I answered all of the family's questions. I will follow Mayte over the next 2 days. I am leaving town Monday through Monday this week. My covering colleagues will be available for consults. I discussed this case extensively with Dr. Dennys buenrostro to outline the oncologic issues, the need for quality of care, our hope that Mayte can have a procedure that will allow her to avoid both the pain of obstruction, and the need for an NG tube, possibly a small-bowel ostomy, conceivably a percutaneous endoscopic gastrostomy (PEG) tube. Quality of life is of utmost importance to Mayte, and after chitra's conversation, she understands her limited prognosis. ANGELA
[2016-06-28 22:00] VITALS: BP 131/75
[2016-06-29] VITALS (9 sets, daily range): BP systolic 118–153; BP diastolic 71–80
[2016-06-29] MEDS: LR 1,000 ML IV SCH (01:09)
[2016-06-29 06:11] LABS: BASO % 0.5 % (0.0-1.0); EOS # 0.1 K/mm3 (0.0-0.50); EOS % 1.4 % (0.0-3.0); LARGE UNSTAINED CELL # 0.1 K/mm3 (0.0-0.4); LARGE UNSTAINED CELL % 1.6 % (0.0-4.0); LYMPH % 20.9 % (24.0-44.0); MEAN CORPUSCULAR HEMOGLOBIN 30.1 pg (27.0-33.0); MEAN CORPUSCULAR HGB CONC 32.6 g/dl (32.0-36.5); MEAN CORPUSCULAR VOLUME 92.4 fl (80.0-96.0); MONO # 0.4 K/mm3 (0.0-0.8); MONO % 7.5 % (0.0-5.0); NEUTROPHILS # 3.2 K/mm3 (1.8-7.7); NEUTROPHILS % 68.2 % (36.0-66.0); PLATELET COUNT, AUTOMATED 225 k/mm3 (150-450); RED CELL DISTRIBUTION WIDTH 16.9 % (11.5-14.5); WHITE BLOOD COUNT 4.6 K/mm3 (4.0-10.0)
[2016-06-29 07:16] LABS: ANION GAP 15 MEQ/L (8-16); BLOOD UREA NITROGEN 3 MG/DL (7-18); CALCIUM LEVEL 7.7 MG/DL (8.8-10.2); CARBON DIOXIDE LEVEL 20 MEQ/L (21-32); CHLORIDE LEVEL 106 MEQ/L (98-107); CREATININE FOR GFR 0.34 MG/DL (0.55-1.02); GLOMERULAR FILTRATION RATE > 60.0 (>39); GLUCOSE, FASTING 72 MG/DL (83-110); POTASSIUM SERUM 3.3 MEQ/L (3.5-5.1); SODIUM LEVEL 141 MEQ/L (136-145)
[2016-06-29] MEDS: MOM 30ML SUSPENSION UDC PO SCH ×2 (08:46→20:13)
[2016-06-29] MEDS: PANTOPRAZOLE 40MG INJ (PROTONIX) (C9113) IV SCH (08:46)
[2016-06-29] MEDS: SENOKOT S TAB PO SCH ×2 (08:46→20:13)
[2016-06-29] MEDS: KCL 20MEQ IN 0.45NS 1000ML 1,000 ML IV SCH ×2 (08:47→20:13)
[2016-06-29] MEDS ORDERED: AMPICILLIN SOD/SULBACTAM SOD 3 GM in D5W MINI-BAG PLUS 100 ML IV ONE (12:15)
--- NOTE | 2016-06-29 14:15 | ROOR ---
Patient Name: Mayte Weathers Procedure Date: 06/29/2016 1:41 PM Date of : 1940 Age: 76 Room: [facility] Gender: Female Note Status: Finalized Procedure: Upper GI endoscopy Indications: Place PEG to improve nutrition in patient with prolonged severe illness Providers: Gume Dill MD Referring MD: 2. Inpatient 2. Inpatient Requesting Provider: Medicines: Monitored Anesthesia Care Complications: No immediate complications. Procedure: Pre-Anesthesia Assessment: - Prior to the procedure, a History and Physical was performed, and patient medications and allergies were reviewed. The patient is competent. The risks and benefits of the procedure and the sedation options and risks were discussed with the patient. All questions were answered and informed consent was obtained. Patient identification and proposed procedure were verified by the physician, the nurse and the anesthesiologist in the endoscopy suite. Mental Status Examination: alert and oriented. Airway Examination: normal oropharyngeal airway and neck mobility. Respiratory Examination: clear to auscultation. CV Examination: normal. Prophylactic Antibiotics: The patient requires prophylactic antibiotics for planned PEG placement. The patient received antibiotic therapy today, before the procedure started. Prior Anticoagulants: The patient has taken Lovenox (enoxaparin), last dose was 1 day prior to procedure. ASA Grade Assessment: IV - A patient with severe systemic disease that is a constant threat to life. After reviewing the risks and benefits, the patient was deemed in satisfactory condition to undergo the procedure. The anesthesia plan was to use monitored anesthesia care (MAC). Immediately prior to administration of medications, the patient was re-assessed for adequacy to receive sedatives. The heart rate, respiratory rate, oxygen saturations, blood pressure, adequacy of pulmonary ventilation, and response to care were monitored throughout the procedure. The physical status of the patient was re-assessed after the procedure. The Endoscope was introduced through the mouth, and advanced to the second part of duodenum. The upper GI endoscopy was accomplished without difficulty. The patient tolerated the procedure well. Findings: No gross lesions were noted in the entire esophagus. Localized mild inflammation characterized by congestion (edema) was found in the gastric antrum. The second portion of the duodenum was normal. The patient was placed in the supine position for PEG placement. The stomach was insufflated to appose gastric and abdominal potter. A site was located in the antrum of the stomach with good transillumination for placement. The abdominal wall was marked and prepped in a sterile manner. The area was anesthetized with 5 mL of 0.5% lidocaine. The trocar needle was introduced through the abdominal wall and into the stomach under direct endoscopic view. A snare was introduced through the endoscope and opened in the gastric lumen. The guide wire was passed through the trocar and into the open snare. The snare was closed around the guide wire. The endoscope and snare were removed, pulling the wire out through the mouth. A skin incision was made at the site of needle insertion. The externally removable 24 Fr Eugene-ADVIZE gastrostomy tube was lubricated. The G-tube was passed over the guide wire through the mouth, and into the stomach. The trocar needle was removed, and the gastrostomy tube was pulled out from the stomach through the skin. The guide wire was removed, and the external bumper attached to the gastrostomy tube. The feeding tube was then cut to an appropriate length. The final position of the gastrostomy tube was confirmed by relook endoscopy, the distal tip was secured to the bowel wall with a clip, and skin marking noted to be 3.5 cm at the external bumper. The final tension and compression of the abdominal wall by the PEG tube and external bumper were checked and revealed that the bumper was loose and lightly touching the skin. The feeding tube was capped, and the tube site was cleaned and dressed. Impression: - No gross lesions in esophagus. - Acute gastritis. - Normal second portion of the duodenum. - An externally removable PEG placement was successfully completed. - No specimens collected. Recommendation: - - Please follow the post-PEG recommendations including: may place dressing under bumper after day 3 flush PEG daily with [address] PEG tube to gravity drainage with lu bag. Gume Dill MD Gume Dill MD 06/29/2016 2:14:43 PM This report has been signed electronically. Number of Addenda: 0 Note Initiated On: 06/29/2016 1:41 PM Estimated Blood Loss: Estimated blood loss was minimal.
--- NOTE | 2016-06-29 19:15 | IPN ---
DATE: 06/29/2016 SUBJECTIVE: The patient is seen and examined at the bedside. Chart has been reviewed. Per Dr. Gemma Daley medical oncology discussion with the patient and patient's family yesterday, there are no more plans for chemotherapy. 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 The patient is planned for possible small bowel ostomy, percutaneous endoscopic gastrostomy (PEG) tube to be discussed by surgery with the family. She has no complaints this morning of shortness of breath, chest pain, pressure or tightness, nausea or vomiting. She is passing gas. No other issues per nursing overnight. OBJECTIVE: VITAL SIGNS: Temperature 97.8, pulse 72, respiratory rate 17, blood pressure 132/75, 93% on room air. GENERAL: The patient is cachectic, appears older than her stated age. Speaks in full sentences. No respiratory distress. Nasogastric tube in place. LUNGS: Clear to auscultation. No wheezes, rales, or rhonchi. HEART: S1, S2. Sinus rhythm. ABDOMEN: Soft, nondistended, nontender. Sluggish bowel sounds. Colostomy in place. EXTREMITIES: No cyanosis, clubbing or pitting edema. LABORATORY DATA: White count 4.6, hemoglobin 10, hematocrit 33, platelet count 225. Sodium 141, potassium 3.3, chloride 106, bicarbonate 20, BUN 3, creatinine 0.34, glucose 72. ASSESSMENT AND PLAN: This is a 76-year-old female with ovarian cancer, no treatment planned for the future, recurrent small bowel obstruction secondary to peritoneal metastasis, type 2 diabetes, dyslipidemia, hypertension, who presented to the emergency room with nausea, vomiting, abdominal pain. Recently hospitalize 06/14 to 06/17 with same issues, with recurrent bowel obstruction and output through her ostomy. The patient is admitted under surgical services and was found to have pulmonary embolism, currently on Lovenox. CURRENT ISSUES: 1. Recurrent small bowel obstruction secondary to peritoneal metastasis from ovarian cancer. Plans are for possible small bowel ostomy versus percutaneous endoscopic gastrostomy tube placement. The patient remains with limited prognosis and is open to hospice comfort measures only once the tube is in place. She would prefer to go home as she is from the [facility]. 2. Hypertension, stable. 3. Pulmonary embolism, currently on Lovenox twice a day, stable on room air. 4. Dyslipidemia on pravastatin. DISPOSITION: The patient is open to hospice. She currently has no plans for further chemotherapy due to persistent multifocal metastatic primary peritoneal carcinoma implants from ovarian cancer.
[2016-06-30 02:00] VITALS: BP 140/70
[2016-06-30 06:00] VITALS: BP 121/60
[2016-06-30 06:52] LABS: BASO % 0.2 % (0.0-1.0); EOS # 0.1 K/mm3 (0.0-0.50); EOS % 1.5 % (0.0-3.0); LARGE UNSTAINED CELL # 0.1 K/mm3 (0.0-0.4); LARGE UNSTAINED CELL % 1.6 % (0.0-4.0); LYMPH % 20.5 % (24.0-44.0); MEAN CORPUSCULAR HEMOGLOBIN 30.1 pg (27.0-33.0); MEAN CORPUSCULAR HGB CONC 32.9 g/dl (32.0-36.5); MEAN CORPUSCULAR VOLUME 91.4 fl (80.0-96.0); MONO # 0.3 K/mm3 (0.0-0.8); MONO % 5.6 % (0.0-5.0); NEUTROPHILS # 3.2 K/mm3 (1.8-7.7); NEUTROPHILS % 70.5 % (36.0-66.0); PLATELET COUNT, AUTOMATED 251 k/mm3 (150-450); RED CELL DISTRIBUTION WIDTH 16.7 % (11.5-14.5); WHITE BLOOD COUNT 4.5 K/mm3 (4.0-10.0)
[2016-06-30 07:12] LABS: ANION GAP 14 MEQ/L (8-16); BLOOD UREA NITROGEN 2 MG/DL (7-18); CALCIUM LEVEL 7.5 MG/DL (8.8-10.2); CARBON DIOXIDE LEVEL 19 MEQ/L (21-32); CHLORIDE LEVEL 107 MEQ/L (98-107); CREATININE FOR GFR 0.42 MG/DL (0.55-1.02); GLOMERULAR FILTRATION RATE > 60.0 (>39); GLUCOSE, FASTING 71 MG/DL (83-110); POTASSIUM SERUM 3.7 MEQ/L (3.5-5.1); SODIUM LEVEL 140 MEQ/L (136-145)
--- NOTE | 2016-06-30 07:16 | IPN ---
DATE OF VISIT: 06/28/2016 MEDICAL ONCOLOGY INPATIENT FOLLOWUP. Today Mayte continues with nasogastric (NG) tube. She denies abdominal pain, says she is overall feeling better. She spoke with Dr. Dill about surgical options and has elected for percutaneous endoscopic gastrostomy (PEG) tube to avoid risk of any future smaller large bowel obstruction. She is also electing for hospice care at home. I have also discussed her case with Dr. Charles Solomon of [facility] in [place]. He agrees that having undergone initial debulking surgery following neoadjuvant chemotherapy, recurrence at this point so quickly after starting second line treatment will be difficult to resolve surgically. Her chance of responding to further chemotherapy are increasingly low. I sat with Mayte in her for quite awhile tonight talking over her choice. She feels that she is making a good decision, I completely agree. She had early recurrence of disease, [place] resistant, after suboptimal debulking and suboptimal response to neoadjuvant chemotherapy. All of these liz ill or durable response for further treatment or further length of treatment. She is suffering greatly from the surgical complications of obstruction, her second time in the hospital in less than a month for the same thing. A diverting PEG tube is a great solution. There will remain an issue of pain as her disease progresses. Hopefully hospice will be able to help her with this. I have discussed with the family member to keep an open mind to inpatient hospice if it is available and needed for things such as morphine drip if needed at the very end of life. Mayte and her generously thank me from my visit and care. I will be out of town June 29-July 03. For any inpatient oncology consults please contact the office [phone] Bentley or Dr. Asif will be available. I would be happy service Mayte's hospice attending if she wishes. I will leave that up to her and the hospice consulting nurse.
[2016-06-30] MEDS: SENOKOT S TAB PO SCH (09:24)
[2016-06-30] MEDS: PANTOPRAZOLE 40MG INJ (PROTONIX) (C9113) IV SCH (09:24)
[2016-06-30] MEDS: MOM 30ML SUSPENSION UDC PO SCH (09:24)
[2016-06-30] MEDS: KCL 20MEQ IN 0.45NS 1000ML 1,000 ML IV SCH (10:10)
[2016-06-30] MEDS ORDERED: LORazepam 1 MG TAB PEG PRN (10:30)
[2016-06-30] MEDS ORDERED: ATROPINE SULFATE 1% OP SOLN 2 ML BTL SL PRN (10:30)
[2016-06-30] MEDS ORDERED: MORPHINE 10MG/0.5ML ORAL CONCENTRATE SOLUTION U/D SL PRN (10:30)
[2016-06-30] MEDS ORDERED: MORP1SOL PO (10:38)
[2016-06-30] MEDS ORDERED: ATRO1OPD PO (10:38)
[2016-06-30] MEDS ORDERED: LORA1TAB12 PO (10:38)
== END 2016-06-30 15:40 | disposition hospice, home (50) | DRG 388 ==
LOC: M ED 12:45 → M ED INP 17:39 → M MSPAV 18:54
PROVIDERS: ADMIT Surgery; ATTEND Surgery
PROC: 0DH68UZ Insertion of Feeding Device into Stomach, Via Natural or Artificial Opening Endoscopic (ICD-10-PCS; principal; 2016-06-29)
DX: K56.60 Unspecified intestinal obstruction (principal); I26.99 Other pulmonary embolism without acute cor pulmonale; C78.6 Secondary malignant neoplasm of retroperitoneum and peritoneum; R64 Cachexia; I10 Essential (primary) hypertension; E78.5 Hyperlipidemia, unspecified; E11.9 Type 2 diabetes mellitus without complications; Z93.3 Colostomy status; Z88.5 Allergy status to narcotic agent; Z88.8 Allergy status to other drugs, medicaments and biological substances; Z79.899 Other long term (current) drug therapy; Z90.710 Acquired absence of both cervix and uterus

== ENCOUNTER → 2016-06-27 | Outpatient (CLI) | payer MEDICARE ==
[~2016-06-27] MED LIST changes: +ATRO1OPD PO; +CALCTAB68 PO; +ISOVUE-370 76% 100ML VIAL (Q9967) As Ordered ONE; +LIDO1CRE14 TOP; +LORA1TAB12 PO; +MIDAZOLAM INJ 2 MG/2 ML VIAL (J2250) As Ordered ONE; +MORP1SOL PO; +ONDANSETRON 4MG/2ML VIAL (J2405) As Ordered ONE
[2016-06-29 14:33] VITALS: BP 148/87
== END ==
LOC: M RAD 13:00
PROVIDERS: ATTEND Internal Medicine Medical Oncology
DX: C56.9 Malignant neoplasm of unspecified ovary (principal)